=== PATIENT | male | born 1955 | race Caucasian/White ===

== ENCOUNTER 2016-07-13 16:29 | Inpatient (IN) | payer BC ==
--- NOTE | 2016-07-13 17:09 | EDM.PDOC ---
ED [facility] Behavioral Health - General Chief Complaint: Drug or Alcohol Abuse Stated Complaint: DETOX Time Seen by Provider: 07/13/16 16:48 Source of Information: Reports: Patient Exam Limitations: Reports: No limitations - History of Present Illness INITIAL COMMENTS - FREE TEXT/NARRATIVE: Patient is a 61-year-old male who presents to the ED complaining of alcoholism and is requesting detox. Patient states his last drink was approximately noon today. States he had a half pint of vodka prior to that. States he was recently evaluated at [facility] for inpatient treatment. Fidel Caceres LAC, evaluated him and states he requires inpatient detox prior to placement into treatment center. He has one prior treatment for alcoholism approximately 7 years ago. Patient was sober for 6 months until drinking alcohol again. Patient denies any hallucinations or seizures with detox. Patient drinks approximately 6-8 drinks of vodka, total 1 pint daily and also bear. He has been doing this for approximately 30+ years. Patient has been able to work up until recently. He was placed on administrative leave in hopes of obtaining therapy. As of today he lost his job. 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 Denies any recreational drug use or smoking. Past medical history: Alcoholism, hypertension, melanoma Medications: Prozac and questions if he is on lisinopril. Surgical history: Excision of melanoma to the chest. Primary care provider: Anayeli Padgett. - Related Data Allergies Allergy/AdvReac Type Severity Reaction Status Date / Time No Known Allergies Allergy Verified 12/20/13 13:52 Home Medications: Home Meds Multivitamin [Multivitamins] 1 each PO DAILY 12/20/13 [History] FLUoxetine [PROzac] 1 tab PO DAILY 07/13/16 [History] Past Medical History - Past Health History Medical/Surgical History: Denies Medical/Surgical History Musculoskeletal History: Reports: Fracture, Neck pain, chronic Other Musculoskeletal History: right arm Psychiatric History: Reports: Addiction Dermatologic History: Reports: Melanoma Social & Family History - Family History Family Medical History: Noncontributory - Tobacco Use Smoking Status *Q: Never Smoker Second Hand Smoke Exposure: No - Caffeine Use Caffeine Use: Reports: Coffee - Alcohol Use Days Per Week of Alcohol Use: 7 Number of Drinks Per Day: 6 Total Drinks Per Week: 42 - Recreational Drug Use Recreational Drug Use: Yes Recreational Drug Type: Reports: Marijuana/Hashish ED ROS GENERAL - Review of Systems Review Of Systems: See Below Constitutional: Reports: no symptoms Respiratory: Reports: No Symptoms Cardiovascular: Reports: No symptoms GI/Abdominal: Reports: No symptoms : Reports: no symptoms Musculoskeletal: Reports: no symptoms Neurological: Reports: No Symptoms Psychiatric: Reports: Cravings, Depression. Denies: Agitation, Anxiety, Confusion, Hallucinations, Homicidal ideation, Mood lability, Suicidal ideation ED EXAM, BEHAVIORAL HEALTH - Physical Exam Exam: See Below Exam Limited By: No limitations General Appearance: alert, WD/WN, no apparent distress Eye Exam: bilateral eye: PERRL (Horizontal nystagmus present. ) Ears: hearing grossly normal Nose: normal inspection Throat/Mouth: Normal voice, No airway compromise Neck: normal inspection, supple Respiratory/Chest: no respiratory distress, lungs clear, normal breath sounds, no accessory muscle use Cardiovascular: normal peripheral pulses, regular rate, rhythm, no murmur GI/Abdominal: normal bowel sounds, soft, non tender, no distention Neurological: alert, normal mood/affect, CN II-XII intact, normal cognition, normal gait, no motor/sensory deficits, oriented x 3 Psychiatric: alert, normal affect, normal cognition, normal mood, oriented Skin Exam: Warm, Dry, Intact, Normal color COURSE, BEHAVIORAL HEALTH COMP - Course Vital Signs: Last Vital Signs Temp 97.8 F 07/13/16 16:36 Pulse 86 07/13/16 16:36 Resp 16 07/13/16 16:36 BP 150/98 H 07/13/16 16:36 Pulse Ox 94 L 07/13/16 16:36 Orders, Labs, Meds: Active Orders 24 hr Category Date Time Status Peripheral IV Care [RC] . DIRECTED Care 07/13/16 17:09 Active MG [MAGNESIUM] [CHEM] Stat Lab 07/13/16 19:15 Ordered Sodium Chloride 0.9% [Saline Flush] Med 07/13/16 17:08 Active 10 ml FLUSH ASDIRECTED PRN Peripheral IV Insertion Adult [OM.PC] Stat Oth 07/13/16 17:08 Ordered Medication Orders Sodium Chloride (Saline Flush) 10 ml FLUSH ASDIRECTED PRN PRN Reason: Keep Vein Open Last Admin: 07/13/16 17:25 Dose: 10 ml Laboratory Tests 07/13/16 07/13/16 07/13/16 Range/Units 17:15 17:15 17:22 WBC 7.00 (4.23-9.07) K/mm3 RBC 5.14 (4.63-6.08) M/mm3 Hgb 15.9 (13.7-17.5) gm/L Hct 45.0 (40.1-51.0) % MCV 87.5 (79.0-92.2) fl MCH 30.9 (25.7-32.2) pg MCHC 35.3 (32.2-35.5) g/dl RDW Std Deviation 45.3 H (35.1-43.9) fL Plt Count 287 (163-337) K/mm3 MPV 9.0 L (9.4-12.3) fl Neut % (Auto) 65.0 (34.0-67.9) % Lymph % (Auto) 27.9 (21.8-53.1) % [place] % (Auto) 6.7 (5.3-12.2) % Eos % (Auto) 0.1 L (0.8-7.0) Baso % (Auto) 0.3 (0.1-1.2) % Neut # (Auto) 4.55 (1.78-5.38) K/mm3 Lymph # (Auto) 1.95 (1.32-3.57) K/mm3 [place] # (Auto) 0.47 (0.30-0.82) K/mm3 Eos # (Auto) 0.01 L (0.04-0.54) K/mm3 Baso # (Auto) 0.02 (0.01-0.08) K/mm3 PT (8.0-13.0) SECONDS INR Sodium (136-145) mEq/L Potassium (3.5-5.1) mEq/L Chloride (98-107) mEq/L Carbon Dioxide (21-32) mEq/L Anion Gap (5-15) BUN (7-18) mg/dL Creatinine (0.7-1.3) mg/dL Est Cr Clr Drug Dosing mL/min Estimated GFR (MDRD) (>60) mL/min BUN/Creatinine Ratio (14-18) Glucose (74-106) mg/dL Calcium (8.5-10.1) mg/dL Total Bilirubin (0.2-1.0) mg/dL AST (15-37) U/L ALT (16-63) U/L Alkaline Phosphatase (46-116) U/L Total Protein (6.4-8.2) g/dl Albumin (3.4-5.0) g/dl Globulin gm/dL Albumin/Globulin Ratio (1-2) TSH 3rd Generation (0.358-3.74) uIU/mL Urine Color Yellow (Yellow) Urine Appearance Clear (Clear) Urine pH 7.0 (5.0-8.0) Ur Specific [place] 1.015 (1.005-1.030) Urine Protein Negative (Negative) Urine Glucose (UA) Negative (Negative) Urine Ketones Negative (Negative) Urine Occult Blood Negative (Negative) Urine Nitrite Negative (Negative) Urine Bilirubin Negative (Negative) Urine Urobilinogen 0.2 (0.2-1.0) Ur Leukocyte Esterase Negative (Negative) Urine RBC Not seen (0-5) /hpf Urine WBC 0-5 (0-5) /hpf Ur Epithelial Cells 0-5 (0-5) /hpf Urine Bacteria Few (FEW) /hpf Urine Mucus Not seen (FEW) /hpf Urine Opiates Screen Negative (NEGATIVE) Ur Buprenorphine Scrn Negative (NEGATIVE) Ur Oxycodone Screen Negative (NEGATIVE) Urine Methadone Screen Negative (NEGATIVE) Ur Propoxyphene Screen Negative (NEGATIVE) Ur Barbiturates Screen Negative (NEGATIVE) Ur Tricyclics Screen Negative (NEGATIVE) Ur Phencyclidine Scrn Negative (NEGATIVE) Ur Amphetamine Screen Negative (NEGATIVE) U Methamphetamines Scrn Negative (NEGATIVE) U Benzodiazepines Scrn Negative (NEGATIVE) U Cocaine Metab Screen Negative (NEGATIVE) U Marijuana (THC) Screen Negative (NEGATIVE) Ethyl Alcohol (0.00) gm% 07/13/16 07/13/16 Range/Units 17:22 17:22 WBC (4.23-9.07) K/mm3 RBC (4.63-6.08) M/mm3 Hgb (13.7-17.5) gm/L Hct (40.1-51.0) % MCV (79.0-92.2) fl MCH (25.7-32.2) pg MCHC (32.2-35.5) g/dl RDW Std Deviation (35.1-43.9) fL Plt Count (163-337) K/mm3 MPV (9.4-12.3) fl Neut % (Auto) (34.0-67.9) % Lymph % (Auto) (21.8-53.1) % [place] % (Auto) (5.3-12.2) % Eos % (Auto) (0.8-7.0) Baso % (Auto) (0.1-1.2) % Neut # (Auto) (1.78-5.38) K/mm3 Lymph # (Auto) (1.32-3.57) K/mm3 [place] # (Auto) (0.30-0.82) K/mm3 Eos # (Auto) (0.04-0.54) K/mm3 Baso # (Auto) (0.01-0.08) K/mm3 PT 10.0 (8.0-13.0) SECONDS INR 0.92 Sodium 135 L (136-145) mEq/L Potassium 3.9 (3.5-5.1) mEq/L Chloride 98 (98-107) mEq/L Carbon Dioxide 23 (21-32) mEq/L Anion Gap 17.9 H (5-15) BUN 7 (7-18) mg/dL Creatinine 0.8 (0.7-1.3) mg/dL Est Cr Clr Drug Dosing 110.25 mL/min Estimated GFR (MDRD) > 60 (>60) mL/min BUN/Creatinine Ratio 8.8 L (14-18) Glucose 99 (74-106) mg/dL Calcium 9.3 (8.5-10.1) mg/dL Total Bilirubin 0.5 (0.2-1.0) mg/dL AST 41 H (15-37) U/L ALT 66 H (16-63) U/L Alkaline Phosphatase 69 (46-116) U/L Total Protein 7.4 (6.4-8.2) g/dl Albumin 3.9 (3.4-5.0) g/dl Globulin 3.5 gm/dL Albumin/Globulin Ratio 1.1 (1-2) TSH 3rd Generation 2.037 (0.358-3.74) uIU/mL Urine Color (Yellow) Urine Appearance (Clear) Urine pH (5.0-8.0) Ur Specific [place] (1.005-1.030) Urine Protein (Negative) Urine Glucose (UA) (Negative) Urine Ketones (Negative) Urine Occult Blood (Negative) Urine Nitrite (Negative) Urine Bilirubin (Negative) Urine Urobilinogen (0.2-1.0) Ur Leukocyte Esterase (Negative) Urine RBC (0-5) /hpf Urine WBC (0-5) /hpf Ur Epithelial Cells (0-5) /hpf Urine Bacteria (FEW) /hpf Urine Mucus (FEW) /hpf Urine Opiates Screen (NEGATIVE) Ur Buprenorphine Scrn (NEGATIVE) Ur Oxycodone Screen (NEGATIVE) Urine Methadone Screen (NEGATIVE) Ur Propoxyphene Screen (NEGATIVE) Ur Barbiturates Screen (NEGATIVE) Ur Tricyclics Screen (NEGATIVE) Ur Phencyclidine Scrn (NEGATIVE) Ur Amphetamine Screen (NEGATIVE) U Methamphetamines Scrn (NEGATIVE) U Benzodiazepines Scrn (NEGATIVE) U Cocaine Metab Screen (NEGATIVE) U Marijuana (THC) Screen (NEGATIVE) Ethyl Alcohol 0.26 (0.00) gm% Medications Generic Name Dose Route Start Last Admin Trade Name Freq PRN Reason Stop Dose Admin Sodium Chloride 10 ml 07/13/16 17:08 07/13/16 17:25 Saline Flush FLUSH 10 ml ASDIRECTED PRN Administration Keep Vein Open Discontinued Medications Generic Name Dose Route Start Last Admin Trade Name Freq PRN Reason Stop Dose Admin Chlordiazepoxide HCl 25 mg 07/13/16 18:59 07/13/16 19:09 Librium PO 07/13/16 19:00 25 mg ONETIME ONE Administration Lorazepam 1 mg 07/13/16 18:59 07/13/16 19:09 Ativan IVPUSH 07/13/16 19:00 1 mg ONETIME ONE Administration Re-Assessment/Re-Exam: Ordered a peripheral IV. Initial labs include CBC, chem 14, PT/INR, TSH, UA, urine drug tox, and serum EtOH. Labs reviewed: CBC essentially normal. Chem 14 with elevated anion gap of 17 and mildly elevated liver enzymes. TSH was within normal limits. UA was negative. Urine drug tox was negative. EtOH is 0.26. 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 Request contact a director of social media marketing. guest history clerk contacting on-call director of social media marketing. [phone] Patient is becoming agitated and anxious. Ordered Librium 25 mg by mouth and also Ativan 1 mg IVP. Nursing staff states Dr. Mares has accepted patient and requests admission as inpatient to ICU. Dr. Clark placed inpatient orders. Ordered serum mg. Departure - Departure Time of Disposition: 19:00 Disposition: Admitted As Inpatient 67 Condition: good Clinical Impression: Alcohol abuse Referrals: Kayley Padgett, SHELBIE [Primary Care Provider] - - My Orders Last 24 Hours: My Active Orders 07/13/16 17:08 Sodium Chloride 0.9% [Saline Flush] 10 ml FLUSH ASDIRECTED PRN Peripheral IV Insertion Adult [OM.PC] Stat 07/13/16 17:09 Peripheral IV Care [RC] . DIRECTED 07/13/16 19:15 MG [MAGNESIUM] [CHEM] Stat - Assessment/Plan Last 24 Hours: My Active Orders 07/13/16 17:08 Sodium Chloride 0.9% [Saline Flush] 10 ml FLUSH ASDIRECTED PRN Peripheral IV Insertion Adult [OM.PC] Stat 07/13/16 17:09 Peripheral IV Care [RC] . DIRECTED 07/13/16 19:15 MG [MAGNESIUM] [CHEM] Stat
[2016-07-13] MEDS: Sodium Chloride 0.9% 10 ML Syringe FLUSH PRN (17:25)
[2016-07-13] MEDS ORDERED: chlordiazePOXIDE 25 MG Cap PO ONE (18:59)
[2016-07-13] MEDS ORDERED: LORazepam 2 MG/ML MDV IVPUSH ONE (18:59)
[2016-07-13] MEDS ORDERED: HYDROmorphone 0.5 MG/0.5 ML Syringe IVPUSH PRN (19:53)
[2016-07-13] MEDS ORDERED: Ondansetron 4 MG/2 ML SDV IV PRN (19:53)
[2016-07-13] MEDS ORDERED: Acetaminophen 325 MG Tab PO PRN (19:53)
[2016-07-13] MEDS ORDERED: Acetaminophen/HYDROcodone 325-5 MG Tab PO PRN (19:53)
--- NOTE | 2016-07-13 19:53 | PCM.HP ---
H&P History of Present Illness - General Date of Service: 07/13/16 Admit Problem/Dx: Admission Diagnosis/Problem Admission Diagnosis/Problem Alcohol withdrawal syndrome Source of Information: Patient, Family, Old records, Provider, RN notes reviewed History Limitations: Reports: Intoxication - History of Present Illness Initial Comments - Free Text/Narative: This is a 61 yo white male with past medical hx/o Anxiety, Depression, HTN, Chronic Alcohol Dependence who presents to ED Intoxicated with DUNIA level of 0.26. He was recently evaluated at [facility] but needed to detox prior to inpatient treatment. Patient carries a long standing hx/o Chronic Alcoholism for over 40 years now. He attended chemical rehab once, about 7-8 years ago. However 6 months after his treatment, he went back to drinking and he continues to drink up to this date. Patient drinks about 1 pint of vodka a day. 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 Patient received initial treatment in ED before he was sent to the floor for further treatment. He is full code. - Related Data Allergies/Adverse Reactions: Allergies Allergy/AdvReac Type Severity Reaction Status Date / Time No Known Allergies Allergy Verified 12/20/13 13:52 Home Medications: Home Meds Multivitamin [Multivitamins] 1 each PO DAILY 12/20/13 [History] FLUoxetine [PROzac] 40 mg PO DAILY 07/13/16 [History] LORazepam 0.5 mg PO TID PRN 07/13/16 [History] Lisinopril 10 mg PO DAILY 07/13/16 [History] Past Medical History - Past Health History Medical/Surgical History: Denies Medical/Surgical History Musculoskeletal History: Reports: Fracture, Neck pain, chronic Other Musculoskeletal History: right arm Psychiatric History: Reports: Addiction Dermatologic History: Reports: Melanoma Social & Family History - Family History Family Medical History: Noncontributory - Tobacco Use Smoking Status *Q: Never Smoker Second Hand Smoke Exposure: No - Caffeine Use Caffeine Use: Reports: Coffee - Alcohol Use Days Per Week of Alcohol Use: 7 Number of Drinks Per Day: 6 Total Drinks Per Week: 42 - Recreational Drug Use Recreational Drug Use: Yes Recreational Drug Type: Reports: Marijuana/Hashish H&P Review of Systems - Review of Systems: Review Of Systems: See Below General: Denies: fever, chills, malaise, weakness, fatigue, decreased appetite HEENT: Denies: contact lenses Pulmonary: Denies: Shortness of Breath Cardiovascular: Denies: chest pain, palpitations, dyspnea on exertion Gastrointestinal: Denies: Abdominal pain, Nausea, Vomiting Genitourinary: Reports: no symptoms Musculoskeletal: Reports: no symptoms Skin: Reports: cyanosis, jaundice, rash, erythema Psychiatric: Reports: depression, cravings. Denies: anxiety, hallucinations, suicidal ideation, homicidal ideation Neurological: Reports: Tremors (mild), Gait Disturbance. Denies: Confusion, Dizziness, Difficulty Walking, Weakness Hematologic/Lymphatic: Reports: no symptoms Immunologic: Reports: no symptoms Exam - Exam Exam: See Below - Vital Signs Vital Signs: Last Vital Signs Temp 36.6 C 07/13/16 16:36 Pulse 88 07/13/16 17:38 Resp 18 07/13/16 17:38 BP 144/79 H 07/13/16 17:38 Pulse Ox 97 07/13/16 17:38 Weight: 79.379 kg - Exam General: alert, oriented, cooperative, mild distress, obtunded HEENT: Conjunctiva clear, EACs clear, Mucosa moist & pink, Nares patent, Normal nasal septum, Posterior pharynx clear, Other (Lateral Nystagmus), PERRLA. No: EOMI Neck: supple, trachea midline, 2+ carotid pulse wo bruit, full range of motion. No: JVD Lungs: Clear to auscultation, Normal respiratory effort Cardiovascular: regular rate, regular rhythm Abdomen: normal bowel sounds, soft. No: organomegaly (Male) Exam: Deferred Rectal (Males) Exam: Deferred Back Exam: normal inspection, full range of motion Extremities: normal inspection, normal pulses. No: clubbing, cyanosis, calf tenderness, edema Peripheral Pulses: 3+: posterior tibial (L), posterior tibial (R), dorsalis pedis (L), dorsalis pedis (R) Skin: warm, dry, intact Neuro Extensive - Mental Status: oriented x3, normal cognition, memory intact Neuro Extensive - Motor, Sensory, Reflexes: CN II-XII intact, abnormal gait Psychiatric: alert, normal affect, anxious, withdrawal symptoms. No: suicidal ideation, homicidal ideation, hallucinations - Patient Data Result Diagrams: 07/13/16 17:22 07/13/16 17:22 *Q Meaningful Use (ADM) - VTE *Q VTE Criteria *Q: - Stroke *Q Stroke Criteria *Q: - AMI *Q AMI Criteria *Q: Problem List Initiated/Reviewed/Updated: Yes Orders Last 24hrs: Active Orders 24 hr Category Date Time Status Admission Status [Patient Status] [ADT] Routine ADT 07/13/16 19:39 Active Medication Orders Sodium Chloride (Saline Flush) 10 ml FLUSH ASDIRECTED PRN PRN Reason: Keep Vein Open Last Admin: 07/13/16 17:25 Dose: 10 ml Assessment/Plan Comment:: Assessment/Plan: Acute: Acute ETOH Intoxication - DUNIA is 0.26 - Drinks half pint of vodka daily - [facility] protocol - Supportive care Chronic ETOH Abuse - Drinks for over 40 years now - He has been in chemical rehab once in the past, 7-8 years ago - He follows [facility] - He wants get in chemical rehab but he needs to detox prior to placement Substance Abuse - Admit ot using Marijuana - Most recent use 1 week ago - UDS negative for THC Anxiety/Depression - He has been on Prozac for so long but it dose not seems to work anymore - He is not being followed by Psych - Will consult Dr. Joe Plan: Admit to ICU [facility] protocol: Ativan/Librium MVI, Folic Acid and Thiamine Ativan IV for abortive seizures Restoril 30 mg po QHS and Benadryl 50 mg IVP PRN for Insomnia PRN Withdrawal Meds: Clonidine, BB, Hydralazine and Seroquel Routine AM labs DVT ppx: Lovenox SubQ GI ppx: PPI Fall/Seizure Precautions SW/CM for d/c planning SA/Psych consult Code status: 1
[2016-07-13] MEDS ORDERED: Albuterol/Ipratropium 3.0-0.5 MG/3 ML Neb Soln NEB PRN (19:58)
[2016-07-13] MEDS ORDERED: Bisacodyl 5 MG Tab PO PRN (19:58)
[2016-07-13] MEDS ORDERED: Docusate Sodium 100 MG Cap PO PRN (19:58)
[2016-07-13] MEDS ORDERED: Temazepam 30 MG Cap PO PRN (19:58)
[2016-07-13] MEDS ORDERED: chlordiazePOXIDE 25 MG Cap PO PRN (20:00)
[2016-07-13] MEDS ORDERED: Multivitamins,Therapeutic Tab PO ONE (20:00)
[2016-07-13] MEDS ORDERED: diphenhydrAMINE 50 MG/ML SDV IVPUSH PRN (20:33)
[2016-07-13] MEDS ORDERED: LORazepam 2 MG/ML MDV IVPUSH PRN (20:34)
[2016-07-13] MEDS: Sodium Chloride 0.9% 1,000 ML IV SCH (21:10)
[2016-07-13] MEDS: Pantoprazole 40 MG Vial IV SCH (21:11)
[2016-07-13] MEDS: QUEtiapine 25 MG Tab PO SCH (21:11)
[2016-07-13] MEDS: Metoprolol Tartrate 5 MG/5 ML SDV IVPUSH PRN (23:02)
[2016-07-14] MEDS: LORazepam 2 MG/ML MDV IVPUSH PRN ×4 (03:03→17:57)
[2016-07-14] MEDS: hydrALAZINE 20 MG/ML SDV IVPUSH PRN (04:46)
[2016-07-14] MEDS: Sodium Chloride 0.9% 1,000 ML IV SCH ×2 (04:46→20:11)
[2016-07-14] MEDS: Metoprolol Tartrate 5 MG/5 ML SDV IVPUSH PRN (06:18)
[2016-07-14] MEDS: chlordiazePOXIDE 25 MG Cap PO PRN ×2 (06:18→14:13)
[2016-07-14] MEDS ORDERED: Magnesium Sulfate/Water 2 GM in Premix Bag 1 BAG IV ONE (07:30)
[2016-07-14] MEDS: Thiamine 100 MG Tab PO SCH (08:04)
[2016-07-14] MEDS: QUEtiapine 25 MG Tab PO SCH ×2 (08:04→20:07)
[2016-07-14] MEDS: Lisinopril 10 MG Tab PO SCH (08:04)
[2016-07-14] MEDS: Enoxaparin 40 MG/0.4 ML Syringe SUBCUT SCH (08:05)
[2016-07-14] MEDS: Folic Acid 1 MG Tab PO SCH (08:05)
[2016-07-14] MEDS: Pantoprazole 40 MG Vial IV SCH (08:05)
--- NOTE | 2016-07-14 08:55 | PCM.PN ---
- General Info Date of Service: 07/14/16 Admission Dx/Problem (Free Text): Admission Diagnosis/Problem Admission Diagnosis/Problem Alcohol withdrawal syndrome Subjective Update: Follow up Functional Status: Reports: pain controlled, tolerating diet, ambulating, urinating. Denies: new symptoms - Review of Systems General: Denies: Fever, Weakness, Fatigue, Malaise, Chills HEENT: Reports: no symptoms Pulmonary: Denies: shortness of breath Cardiovascular: Denies: Chest Pain, Palpitations, Dyspnea on Exertion Gastrointestinal: Denies: Abdominal pain, Constipation, Diarrhea, Difficulty swallowing, Nausea, Vomiting Genitourinary: Reports: no symptoms Musculoskeletal: Reports: no symptoms Skin: Denies: cyanosis, rash Neurological: Denies: Confusion, Dizziness, Seizure, Syncope, Difficulty Walking , Weakness Psychiatric: Denies: confusion, depression, anxiety, agitation, cravings, hallucinations, homicidal ideation Systems Review Comment:: No overnight or acute issues. He slept really well last night. He still somewhat groggy but able to hold a conversation. - Patient Data Vitals - most recent: Last Vital Signs Temp 36.6 C 07/14/16 07:44 Pulse 96 07/14/16 08:00 Resp 18 07/14/16 07:44 BP 139/83 07/14/16 08:04 Pulse Ox 96 07/14/16 08:00 Weight - most recent: 79.379 kg I&O - last 24 hours: Intake & Output 07/13/16 07/14/16 07/14/16 22:59 06:59 14:59 Intake Total 1442 Output Total 1000 400 Balance 442 -400 Lab Results last 24 hrs: Laboratory Results - last 24 hr 07/14/16 07/14/16 Range/Units 06:34 06:34 WBC 6.00 (4.23-9.07) K/mm3 RBC 4.75 (4.63-6.08) M/mm3 Hgb 14.6 (13.7-17.5) gm/L Hct 42.2 (40.1-51.0) % MCV 88.8 (79.0-92.2) fl MCH 30.7 (25.7-32.2) pg MCHC 34.6 (32.2-35.5) g/dl RDW Std Deviation 45.7 H (35.1-43.9) fL Plt Count 268 (163-337) K/mm3 MPV 9.0 L (9.4-12.3) fl Neut % (Auto) 51.3 (34.0-67.9) % Lymph % (Auto) 36.0 (21.8-53.1) % [place] % (Auto) 11.7 (5.3-12.2) % Eos % (Auto) 0.5 L (0.8-7.0) Baso % (Auto) 0.3 (0.1-1.2) % Neut # (Auto) 3.08 (1.78-5.38) K/mm3 Lymph # (Auto) 2.16 (1.32-3.57) K/mm3 [place] # (Auto) 0.70 (0.30-0.82) K/mm3 Eos # (Auto) 0.03 L (0.04-0.54) K/mm3 Baso # (Auto) 0.02 (0.01-0.08) K/mm3 Sodium 136 (136-145) mEq/L Potassium 4.2 (3.5-5.1) mEq/L Chloride 103 (98-107) mEq/L Carbon Dioxide 24 (21-32) mEq/L Anion Gap 13.2 (5-15) BUN 10 (7-18) mg/dL Creatinine 0.9 (0.7-1.3) mg/dL Est Cr Clr Drug Dosing 98.00 mL/min Estimated GFR (MDRD) > 60 (>60) mL/min BUN/Creatinine Ratio 11.1 L (14-18) Glucose 94 (74-106) mg/dL Calcium 8.3 L (8.5-10.1) mg/dL Magnesium 1.6 L (1.8-2.4) mg/dl Total Bilirubin 1.1 H (0.2-1.0) mg/dL AST 35 (15-37) U/L ALT 55 (16-63) U/L Alkaline Phosphatase 55 (46-116) U/L Total Protein 6.1 L (6.4-8.2) g/dl Albumin 3.2 L (3.4-5.0) g/dl Globulin 2.9 gm/dL Albumin/Globulin Ratio 1.1 (1-2) Med Orders - Current: Current Medications Acetaminophen (Tylenol) 650 mg PO Q4H PRN PRN Reason: Pain (Mild 1-3)/fever Hydrocodone Bitart/Acetaminophen ([place] 325-5 Mg) 1 tab PO Q4H PRN PRN Reason: Pain (moderate 4-6) Albuterol/Ipratropium (Duoneb 3.0-0.5 Mg/3 Ml) 3 ml NEB Q4H PRN PRN Reason: Shortness Of Breath/wheezing Bisacodyl (Dulcolax) 5 mg PO DAILY PRN PRN Reason: Constipation Chlordiazepoxide HCl (Librium) 25 mg PO Q8H PRN PRN Reason: Withdrawal Symptoms Last Admin: 07/14/16 06:18 Dose: 25 mg Diphenhydramine HCl (Benadryl) 50 mg IVPUSH BEDTIME PRN PRN Reason: Insomnia Docusate Sodium (Colace) 100 mg PO BID PRN PRN Reason: Constipation Enoxaparin Sodium (Lovenox) 40 mg SUBCUT DAILY [facility] Last Admin: 07/14/16 08:05 Dose: 40 mg Famotidine (Pepcid) 20 mg PO Q12H [facility] Folic Acid (Folic Acid) 1 mg PO DAILY [facility] Stop: 07/16/16 09:01 Last Admin: 07/14/16 08:05 Dose: 1 mg Hydralazine HCl (Apresoline) 20 mg IVPUSH Q4H PRN PRN Reason: Hypertension Last Admin: 07/14/16 04:46 Dose: 20 mg Hydromorphone HCl (Dilaudid) 0.25 mg IVPUSH Q2H PRN PRN Reason: Pain (severe 7-10) Sodium Chloride (Normal Saline) 1,000 mls @ 125 mls/hr IV ASDIRECTED [facility] Last Admin: 07/14/16 04:46 Dose: 125 mls/hr Magnesium Sulfate 2 gm/ Premix 50 mls @ 25 mls/hr IV ONETIME ONE Stop: 07/14/16 09:29 Last Admin: 07/14/16 07:41 Dose: 25 mls/hr Lisinopril (Prinivil) 10 mg PO DAILY [facility] Last Admin: 07/14/16 08:04 Dose: 10 mg Lorazepam (Ativan) 2 mg IVPUSH Q4H PRN PRN Reason: Seizures Lorazepam (Ativan) 1 mg IVPUSH Q4H PRN; Protocol PRN Reason: Withdrawal Symptoms Last Admin: 07/14/16 06:29 Dose: 1 mg Lorazepam (Ativan) 0.5 mg PO TID PRN PRN Reason: Anxiety Magnesium Sulfate (Pharmacy To Dose - Magnesium Replacement) 1 dose .XX ASDIRECTED [facility] Metoprolol Tartrate (Lopressor) 5 mg IVPUSH Q4H PRN PRN Reason: Tachycardia Last Admin: 07/14/16 06:18 Dose: 5 mg Ondansetron HCl (Zofran) 4 mg IV Q6H PRN PRN Reason: Nausea/Vomiting Pantoprazole Sodium (Protonix Iv) 40 mg IV Q12H [facility] Last Admin: 07/14/16 08:05 Dose: 40 mg Potassium Chloride (Pharmacy To Dose - Potassium Replacement) 1 dose .XX ASDIRECTED [facility] Quetiapine Fumarate (Seroquel) 25 mg PO BID [facility] Last Admin: 07/14/16 08:04 Dose: 25 mg Senna/Docusate Sodium (Senna Plus) 1 tab PO BID PRN PRN Reason: Constipation Sodium Chloride (Saline Flush) 10 ml FLUSH ASDIRECTED PRN PRN Reason: Keep Vein Open Last Admin: 07/13/16 17:25 Dose: 10 ml Temazepam (Restoril) 30 mg PO BEDTIME PRN PRN Reason: Sleep Last Admin: 07/13/16 21:11 Dose: 30 mg Thiamine HCl (Vitamin B-1) 100 mg PO DAILY [facility] Last Admin: 07/14/16 08:04 Dose: 100 mg Discontinued Medications Chlordiazepoxide HCl (Librium) 25 mg PO ONETIME ONE Stop: 07/13/16 19:00 Last Admin: 07/13/16 19:09 Dose: 25 mg Chlordiazepoxide HCl (Librium) 25 mg PO Q8H PRN PRN Reason: Withdrawal Symptoms Fluoxetine HCl (Prozac) 10 mg PO DAILY [facility] Thiamine HCl 200 mg/ Sodium (Chloride) 52 mls @ 100 mls/hr IV ONETIME ONE Stop: 07/13/16 20:30 Last Admin: 07/13/16 21:11 Dose: 100 mls/hr Lorazepam (Ativan) 1 mg IVPUSH ONETIME ONE Stop: 07/13/16 19:00 Last Admin: 07/13/16 19:09 Dose: 1 mg Multivitamins (Thera) 1 each PO ONETIME ONE Stop: 07/13/16 20:01 Last Admin: 07/13/16 21:12 Dose: 1 each - Exam General: oriented, cooperative, no acute distress HEENT: Pupils equal, Pupils reactive, EOMI, Mucous membr. moist/pink Neck: supple, trachea midline, no JVD, no thyromegaly Lungs: Clear to auscultation, Normal respiratory effort Cardiovascular: Regular Rate, Regular Rhythm Abdomen: bowel sounds present, soft, no tenderness, no distension (Male) Exam: Deferred Back Exam: normal inspection, decreased range of motion Extremities: no edema, normal pulses, no tenderness/swelling, no clubbing, no cyanosis, no calf tenderness Skin: warm, dry, intact Neurological: no new focal deficit Psy/Mental Status: normal affect, normal mood, withdrawal symptoms, other ( somewhat lethargic). No: anxious, agitated, suicidal ideation, homicidal ideation, hallucinations - Problem List Review Problem List Initiated/Reviewed/Updated: Yes - My Orders Last 24 Hours: My Active Orders 07/13/16 19:39 Admission Status [Patient Status] [ADT] Routine 07/13/16 19:53 CIWAA Assessment [RC] Q1HR Height and Weight [RC] DAILY Notify Provider [RC] PRN Oxygen Therapy [RC] PRN Up ad Verónica [RC] ASDIRECTED VTE/DVT Education [RC] PER UNIT ROUTINE Vital Signs [RC] Q4HR Acetaminophen [Tylenol] 650 mg PO Q4H PRN Acetaminophen/HYDROcodone [[place] 325-5 MG] 1 tab PO Q4H PRN HYDROmorphone [Dilaudid] 0.25 mg IVPUSH Q2H PRN Ondansetron [Zofran] 4 mg IV Q6H PRN Resuscitation Status Routine 07/13/16 19:54 Cardiac Monitoring [RC] CONTINUOUS Intake and Output [RC] 07/13/16 19:58 Albuterol/Ipratropium [DuoNeb 3.0-0.5 MG/3 ML] 3 ml NEB Q4H PRN Bisacodyl [Dulcolax] 5 mg PO DAILY PRN Docusate Sodium [Colace] 100 mg PO BID PRN Docusate Sodium/Sennosides [Senna Plus] 1 tab PO BID PRN Temazepam [Restoril] 30 mg PO BEDTIME PRN 07/13/16 19:59 RT Aerosol Therapy [RC] ASDIRECTED 07/13/16 20:00 Consult to Case Management [CONS] Routine Consult to [facility] [CONS] Routine OT Evaluation and Treatment [CONS] Routine PT Evaluation and Treatment [CONS] Routine Sodium Chloride 0.9% [Normal Saline] 1,000 ml IV ASDIRECTED Seizure Precautions [OM.PC] Routine 07/13/16 20:05 Metoprolol Tartrate [Lopressor] 5 mg IVPUSH Q4H PRN hydrALAZINE [Apresoline] 20 mg IVPUSH Q4H PRN 07/13/16 20:15 Magnesium Rep Pharmacy to Dose [Pharmacy to Dose - Magnesium Replacement] 1 dose .XX ASDIRECTED Potassium Rep Pharmacy to Dose [Pharmacy to Dose - Potassium Replacement] 1 dose .XX ASDIRECTED 07/13/16 20:33 diphenhydrAMINE [Benadryl] 50 mg IVPUSH BEDTIME PRN 07/13/16 20:34 LORazepam [Ativan] 2 mg IVPUSH Q4H PRN 07/13/16 20:35 LORazepam [Ativan] 1 mg IVPUSH Q4H PRN chlordiazePOXIDE [Librium] 25 mg PO Q8H PRN 07/13/16 20:39 Notify Provider Consults [RC] ASDIRECTED Consult to Physician [CONS] Routine 07/13/16 21:00 Pantoprazole [ProTONIX IV] 40 mg IV Q12H QUEtiapine [SEROquel] 25 mg PO BID 07/13/16 23:27 LORazepam [Ativan] 0.5 mg PO TID PRN 07/13/16 Dinner Regular Diet [DIET] 07/14/16 07:30 Magnesium Sulfate/Water [Magnesium Sulfate 2 GM in Water 50 ML] 2 gm Premix Bag 1 bag IV ONETIME 07/14/16 09:00 Enoxaparin [Lovenox] 40 mg SUBCUT DAILY Folic Acid 1 mg PO DAILY Lisinopril [Prinivil] 10 mg PO DAILY Thiamine [Vitamin B-1] 100 mg PO DAILY 07/15/16 05:11 CBC WITH AUTO DIFF [HEME] AM COMPREHENSIVE METABOLIC PN,CMP [CHEM] AM MAGNESIUM [CHEM] AM 04/28/17 21:00 Famotidine [Pepcid] 20 mg PO Q12H 07/16/16 05:11 CBC WITH AUTO DIFF [HEME] AM COMPREHENSIVE METABOLIC PN,CMP [CHEM] AM MAGNESIUM [CHEM] AM 07/17/16 05:11 CBC WITH AUTO DIFF [HEME] AM COMPREHENSIVE METABOLIC PN,CMP [CHEM] AM MAGNESIUM [CHEM] AM - Plan Plan:: Assessment/Plan: Acute: Acute ETOH Intoxication With Mild- Mod Withdrawal Syndrome - DUNIA is 0.26 - Drinks half pint of vodka daily - [facility] protocol - Supportive care Chronic ETOH Abuse - Drinks for over 40 years now - He has been in chemical rehab once in the past, 7-8 years ago - He follows [facility] - He wants get in chemical rehab but he needs to detox prior to placement Substance Abuse - Admit ot using Marijuana - Most recent use 1 week ago - UDS negative for THC Anxiety/Depression - He has been on Prozac for so long but it dose not seems to work anymore - He is not being followed by Psych - Awaiting consultation from Dr. Joe Plan: He is fairly stable Continue current treatment [facility] protocol: Ativan/Librium MVI, Folic Acid and Thiamine Ativan IV for abortive seizures Restoril 30 mg po QHS and Benadryl 50 mg IVP PRN for Insomnia PRN Withdrawal Meds: Clonidine, BB, Hydralazine and Seroquel Routine AM labs DVT ppx: Lovenox SubQ GI ppx: PPI Fall/Seizure Precautions SW/CM for d/c planning SA/Psych consult Code status: 1
[2016-07-14] MEDS ORDERED: FLUoxetine 10 MG Cap PO SCH (09:00)
[2016-07-14] MEDS: Venlafaxine 37.5 MG Cap.ER PO SCH (11:59)
--- NOTE | 2016-07-14 16:37 | CONS ---
CONSULTING PHYSICIAN: Sincere Joe MD DATE OF CONSULTATION: 07/14/2016 This is a 60 minute inpatient consult. IDENTIFICATION: The patient is a 61-year-old male, who was admitted to the MICU at [facility] in [place], [place] on July 15 for symptoms of alcohol withdrawal. He is seen for psychiatric consultation to assess for depression. CHIEF COMPLAINT: "I was just drinking every day and needed help." HISTORY OF PRESENT ILLNESS: The patient is a 61-year-old male who reports that he has been drinking "about a pint of vodka a day" for some time now. He states that he has been struggling with depression and anxiety and notes "I kind of drink to help with depression. To self medicate." Evidently, according to staff, the patient lost his job yesterday. 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 He notes that in addition to his heavy drinking and his anxiety and depression; he has been struggling with decreased appetite and racing thoughts and ruminations to the point of distraction and it is causing poor sleep quality. He denies any mood swings. He denies any type of compulsive behaviors aside from his drinking and he states that he is generally maintaining good interest and good energy denying any isolative behavior. He denies any suicidal or homicidal ideations or any psychotic, delusional, or paranoid symptoms. He states that he is depressed and anxious and this anxiety and depression has been pretty badly, but he feels that if he can get the drinking under control "that will help quite a bit," in terms of improving his mood. He is currently taking Prozac prior to admission. He states he has been on this medication "for about 8 years" now, he felt that the medication helped at the beginning but not so much now. He states "it was recently bumped up but it did not do much" in terms of helping improve his mood. He also states he was on Effexor XR in the past and this medication helped him quite a bit, but he had to go off it back in the day because "it was too expensive when I was getting it back then." MEDICATIONS: At the time of presentation prior to admission: 1. Prozac since admission. 2. Ativan p.r.n. 3. Librium. 4. Seroquel 25 b.i.d. 5. Lisinopril. ALLERGIES: No known drug allergies. PAST MEDICAL HISTORY: Hypertension. REVIEW OF SYSTEMS: Aside from cardiovascular, all other major organ systems are negative at this point in time for acute difficulties or complications. FAMILY/PSYCHIATRIC/AND CD HISTORY: The patient denies past psychiatric and CD history. The patient denies any previous psychiatric hospitalizations. He reports one chemical dependency treatment in 2006 for alcohol use. He is a nontobacco user. Denies any DWIs, has gone to AA in the past. Not so sure, it has helped him though in his opinion. His longest sobriety was after he went through the treatment. He had 6 months of sobriety. Denies any previous suicide attempts, self-injurious behaviors or eating disorder history. Past psychiatric medication history includes Effexor XR which help. Past psychiatric diagnosis is anxiety and depression. He sees a counselor out of [facility] and his primary care provider Kayley Padgett NP. SOCIAL HISTORY: The patient was born and raised in [place], [place] area [place] the [facility]. He is the second of 2 siblings and has one older sister. The patient's parents were throughout his childhood and adolescence. 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 The patient's highest level of education is [employer]. The patient is currently a local brand mgr. He has been twice. First marriage was for 24 years. He was for 6 years. His 2nd marriage now for the past 4 years. His 2nd consulted and he has 2 children from the first marriage. He lives with his in [place], [place]. Denies any prior service or any current legal difficulties. He was raised [facility]; enjoys biking, golfing, and fishing, and hunting. MENTAL STATUS EXAM: The patient is a 61-year-old white male, in no apparent distress. Speech is regular rate and rhythm. The patient is cognitively oriented x3. Psychomotor activity is within normal limits. There is no abnormal motor movements or tics observed. Gait and station are not observed. This patient is lying in bed, during the inpatient psychiatric consult. Mood is depressed and anxious. Affect is cooperative overall for the purposes of the inpatient psychiatric consult, perhaps somewhat restricted and consistent with stated mood. There is no behavioral or stated evidence of acute suicidal or homicidal ideation or acute psychotic, delusional, or paranoid symptoms. Thought processes appear organized. The patient is reporting racing thoughts and ruminations. There is no acute manic symptoms or loose associations evident. Judgment and insight appear unimpaired at this point in time. Motivation is good. VITALS: 139/83, 96, 18, and 98.6 degrees. IMPRESSION: [place] I: 1. Alcohol dependence, F10.20. 2. Major depressive disorder, recurrent F33.2. 3. Anxiety disorder, not otherwise specified; F41.9. [place] II: None. [place] III: History of hypertension. [place] IV: Severe. [place] V: 55 to 60. PLAN: 1. Discontinue Prozac. 2. Begin trial of Effexor XR, 35 mg q.a.m. to help with mood. 3. Continue Seroquel, but change dosing regimen from 25 mg b.i.d. to 50 mg at bedtime to help with sleep initiation and maintenance and also to reduce racing thoughts and ruminations, particularly in the evening to help with anxiety reduction. 4. I will continue Ativan per [facility] protocol. 5. Folic acid 1 mg daily, if not already prescribed. 6. Thiamine 100 mg daily, if not already prescribed. 7. AA rep. 8. Pastoral guidance. 9. CD consult if not already done. 10.We will continue follow up with the patient on an as needed basis while he is on the inpatient MICU medical unit. 11.We will follow up with the patient sooner, if there are any complications in the interim. 12.Crisis plan is in place. [facility] /[id number]
[2016-07-14] MEDS: LORazepam 0.5 MG Tab PO PRN (20:06)
[2016-07-14] MEDS: Famotidine 20 MG Tab PO SCH (20:08)
[2016-07-15] MEDS: Sodium Chloride 0.9% 1,000 ML IV SCH (04:15)
[2016-07-15] MEDS: chlordiazePOXIDE 25 MG Cap PO PRN (06:44)
[2016-07-15] MEDS: LORazepam 0.5 MG Tab PO PRN (06:44)
--- NOTE | 2016-07-15 07:14 | PCM.PN ---
- General Info Date of Service: 07/15/16 Admission Dx/Problem (Free Text): Admission Diagnosis/Problem Admission Diagnosis/Problem Alcohol withdrawal syndrome Subjective Update: Follow up Functional Status: Reports: pain controlled, tolerating diet, ambulating, urinating. Denies: new symptoms - Review of Systems General: Denies: Fever, Weakness, Fatigue, Malaise HEENT: Reports: no symptoms Pulmonary: Denies: shortness of breath Cardiovascular: Denies: Chest Pain Gastrointestinal: Denies: Abdominal pain, Nausea, Vomiting Genitourinary: Reports: no symptoms Musculoskeletal: Reports: no symptoms Skin: Denies: cyanosis Neurological: Denies: Confusion, Dizziness, Syncope, Tremors, Gait Disturbance Psychiatric: Denies: confusion, depression, anxiety, agitation, hallucinations, suicidal ideation Systems Review Comment:: No overnight issues. CIWA Score is 10-11 w/o medications. He has no new complaints. - Patient Data Vitals - most recent: Last Vital Signs Temp 36.8 C 07/15/16 04:00 Pulse 88 07/14/16 19:49 Resp 16 07/15/16 04:00 BP 139/89 07/15/16 04:00 Pulse Ox 98 07/15/16 04:00 Weight - most recent: 79.107 kg I&O - last 24 hours: Intake & Output 07/14/16 07/15/16 07/15/16 22:59 06:59 14:59 Intake Total 3440 1600 Output Total 300 850 Balance 3140 750 Lab Results last 24 hrs: Laboratory Results - last 24 hr 07/14/16 07/15/16 Range/Units 06:34 06:25 WBC 7.42 (4.23-9.07) K/mm3 RBC 4.44 L (4.63-6.08) M/mm3 Hgb 13.7 (13.7-17.5) gm/L Hct 40.2 (40.1-51.0) % MCV 90.5 (79.0-92.2) fl MCH 30.9 (25.7-32.2) pg MCHC 34.1 (32.2-35.5) g/dl RDW Std Deviation 46.6 H (35.1-43.9) fL Plt Count 227 (163-337) K/mm3 MPV 9.2 L (9.4-12.3) fl Neut % (Auto) 74.2 H (34.0-67.9) % Lymph % (Auto) 15.8 L (21.8-53.1) % [place] % (Auto) 8.9 (5.3-12.2) % Eos % (Auto) 0.9 (0.8-7.0) Baso % (Auto) 0.1 (0.1-1.2) % Neut # (Auto) 5.50 H (1.78-5.38) K/mm3 Lymph # (Auto) 1.17 L (1.32-3.57) K/mm3 [place] # (Auto) 0.66 (0.30-0.82) K/mm3 Eos # (Auto) 0.07 (0.04-0.54) K/mm3 Baso # (Auto) 0.01 (0.01-0.08) K/mm3 Sodium 136 (136-145) mEq/L Potassium 4.2 (3.5-5.1) mEq/L Chloride 103 (98-107) mEq/L Carbon Dioxide 24 (21-32) mEq/L Anion Gap 13.2 (5-15) BUN 10 (7-18) mg/dL Creatinine 0.9 (0.7-1.3) mg/dL Est Cr Clr Drug Dosing 98.00 mL/min Estimated GFR (MDRD) > 60 (>60) mL/min BUN/Creatinine Ratio 11.1 L (14-18) Glucose 94 (74-106) mg/dL Calcium 8.3 L (8.5-10.1) mg/dL Magnesium 1.6 L (1.8-2.4) mg/dl Total Bilirubin 1.1 H (0.2-1.0) mg/dL AST 35 (15-37) U/L ALT 55 (16-63) U/L Alkaline Phosphatase 55 (46-116) U/L Total Protein 6.1 L (6.4-8.2) g/dl Albumin 3.2 L (3.4-5.0) g/dl Globulin 2.9 gm/dL Albumin/Globulin Ratio 1.1 (1-2) Med Orders - Current: Current Medications Acetaminophen (Tylenol) 650 mg PO Q4H PRN PRN Reason: Pain (Mild 1-3)/fever Hydrocodone Bitart/Acetaminophen ([place] 325-5 Mg) 1 tab PO Q4H PRN PRN Reason: Pain (moderate 4-6) Albuterol/Ipratropium (Duoneb 3.0-0.5 Mg/3 Ml) 3 ml NEB Q4H PRN PRN Reason: Shortness Of Breath/wheezing Bisacodyl (Dulcolax) 5 mg PO DAILY PRN PRN Reason: Constipation Chlordiazepoxide HCl (Librium) 25 mg PO Q8H PRN PRN Reason: Withdrawal Symptoms Last Admin: 07/15/16 06:44 Dose: 25 mg Diphenhydramine HCl (Benadryl) 50 mg IVPUSH BEDTIME PRN PRN Reason: Insomnia Docusate Sodium (Colace) 100 mg PO BID PRN PRN Reason: Constipation Enoxaparin Sodium (Lovenox) 40 mg SUBCUT DAILY [facility] Last Admin: 07/14/16 08:05 Dose: 40 mg Famotidine (Pepcid) 20 mg PO Q12H [facility] Famotidine (Pepcid) 20 mg PO BID [facility] Last Admin: 07/14/16 20:08 Dose: 20 mg Folic Acid (Folic Acid) 1 mg PO DAILY [facility] Stop: 07/16/16 09:01 Last Admin: 07/14/16 08:05 Dose: 1 mg Hydralazine HCl (Apresoline) 20 mg IVPUSH Q4H PRN PRN Reason: Hypertension Last Admin: 07/14/16 04:46 Dose: 20 mg Hydromorphone HCl (Dilaudid) 0.25 mg IVPUSH Q2H PRN PRN Reason: Pain (severe 7-10) Sodium Chloride (Normal Saline) 1,000 mls @ 125 mls/hr IV ASDIRECTED [facility] Last Admin: 07/15/16 04:15 Dose: 125 mls/hr Lisinopril (Prinivil) 10 mg PO DAILY [facility] Last Admin: 07/14/16 08:04 Dose: 10 mg Lorazepam (Ativan) 2 mg IVPUSH Q4H PRN PRN Reason: Seizures Lorazepam (Ativan) 1 mg IVPUSH Q4H PRN; Protocol PRN Reason: Withdrawal Symptoms Last Admin: 07/14/16 17:57 Dose: 1 mg Lorazepam (Ativan) 0.5 mg PO TID PRN PRN Reason: Anxiety Last Admin: 07/15/16 06:44 Dose: 0.5 mg Magnesium Sulfate (Pharmacy To Dose - Magnesium Replacement) 1 dose .XX ASDIRECTED [facility] Metoprolol Tartrate (Lopressor) 5 mg IVPUSH Q4H PRN PRN Reason: Tachycardia Last Admin: 07/14/16 06:18 Dose: 5 mg Ondansetron HCl (Zofran) 4 mg IV Q6H PRN PRN Reason: Nausea/Vomiting Potassium Chloride (Pharmacy To Dose - Potassium Replacement) 1 dose .XX ASDIRECTED [facility] Quetiapine Fumarate (Seroquel) 50 mg PO BEDTIME [facility] Last Admin: 07/14/16 20:07 Dose: 50 mg Senna/Docusate Sodium (Senna Plus) 1 tab PO BID PRN PRN Reason: Constipation Sodium Chloride (Saline Flush) 10 ml FLUSH ASDIRECTED PRN PRN Reason: Keep Vein Open Last Admin: 07/13/16 17:25 Dose: 10 ml Temazepam (Restoril) 30 mg PO BEDTIME PRN PRN Reason: Sleep Last Admin: 07/13/16 21:11 Dose: 30 mg Thiamine HCl (Vitamin B-1) 100 mg PO DAILY [facility] Last Admin: 07/14/16 08:04 Dose: 100 mg Venlafaxine HCl (Effexor Xr) 37.5 mg PO DAILY [facility] Last Admin: 07/14/16 11:59 Dose: 37.5 mg Venlafaxine HCl (Effexor Xr) 75 mg PO DAILY [facility] Discontinued Medications Chlordiazepoxide HCl (Librium) 25 mg PO ONETIME ONE Stop: 07/13/16 19:00 Last Admin: 07/13/16 19:09 Dose: 25 mg Chlordiazepoxide HCl (Librium) 25 mg PO Q8H PRN PRN Reason: Withdrawal Symptoms Fluoxetine HCl (Prozac) 10 mg PO DAILY [facility] Thiamine HCl 200 mg/ Sodium (Chloride) 52 mls @ 100 mls/hr IV ONETIME ONE Stop: 07/13/16 20:30 Last Admin: 07/13/16 21:11 Dose: 100 mls/hr Magnesium Sulfate 2 gm/ Premix 50 mls @ 25 mls/hr IV ONETIME ONE Stop: 07/14/16 09:29 Last Admin: 07/14/16 07:41 Dose: 25 mls/hr Lorazepam (Ativan) 1 mg IVPUSH ONETIME ONE Stop: 07/13/16 19:00 Last Admin: 07/13/16 19:09 Dose: 1 mg Multivitamins (Thera) 1 each PO ONETIME ONE Stop: 07/13/16 20:01 Last Admin: 07/13/16 21:12 Dose: 1 each Pantoprazole Sodium (Protonix Iv) 40 mg IV Q12H [facility] Last Admin: 07/14/16 08:05 Dose: 40 mg Quetiapine Fumarate (Seroquel) 25 mg PO BID [facility] Last Admin: 07/14/16 08:04 Dose: 25 mg - Exam General: alert, oriented, cooperative, no acute distress HEENT: Pupils equal, Pupils reactive, EOMI, Mucous membr. moist/pink Neck: supple, trachea midline, no JVD, no thyromegaly, +2 carotid pulse wo bruit Lungs: Clear to auscultation, Normal respiratory effort Cardiovascular: No Murmurs, Tachycardia Abdomen: bowel sounds present, soft, no tenderness, no distension (Male) Exam: Deferred Back Exam: normal inspection, full range of motion Extremities: no edema, normal pulses, no tenderness/swelling, no clubbing, no cyanosis, no calf tenderness Peripheral Pulses: 3+: posterior tibial (L), posterior tibial (R), dorsalis pedis (L), dorsalis pedis (R) Skin: warm, dry, intact Neurological: no new focal deficit Psy/Mental Status: alert, normal affect, normal mood. No: homicidal ideation, hallucinations - Problem List Review Problem List Initiated/Reviewed/Updated: Yes - My Orders Last 24 Hours: My Active Orders 07/14/16 09:00 Enoxaparin [Lovenox] 40 mg SUBCUT DAILY Folic Acid 1 mg PO DAILY Lisinopril [Prinivil] 10 mg PO DAILY Thiamine [Vitamin B-1] 100 mg PO DAILY 07/14/16 21:00 Famotidine [Pepcid] 20 mg PO BID 07/15/16 06:25 COMPREHENSIVE METABOLIC PN,CMP [CHEM] AM MAGNESIUM [CHEM] AM 07/15/16 21:00 Famotidine [Pepcid] 20 mg PO Q12H 07/16/16 05:11 CBC WITH AUTO DIFF [HEME] AM COMPREHENSIVE METABOLIC PN,CMP [CHEM] AM MAGNESIUM [CHEM] AM 07/17/16 05:11 CBC WITH AUTO DIFF [HEME] AM COMPREHENSIVE METABOLIC PN,CMP [CHEM] AM MAGNESIUM [CHEM] AM - Plan Plan:: Assessment/Plan: Acute: ETOH Withdrawal Syndrome - CIWA score 10-11 prior to medications - DUNIA is 0.26 on admission - Drinks half pint of vodka daily - CIWA protocol - Supportive care Chronic ETOH Abuse - Drinks for over 40 years now - He has been in chemical rehab once in the past, 7-8 years ago - He follows [facility] - He wants get in chemical rehab but he needs to detox prior to placement Substance Abuse - Admit ot using Marijuana - Most recent use 1 week ago - UDS negative for THC Anxiety/Depression - He has been on Prozac for so long but it dose not seems to work anymore - He is not being followed by Psych - Seen and evaluated by Dr. Joe, he is now on Effexor Plan: He remains fairly stable Continue current treatment [facility] protocol: Ativan/Librium MVI, Folic Acid and Thiamine Ativan IV for abortive seizures PRN Withdrawal Meds: Clonidine, BB, Hydralazine and Seroquel Routine AM labs DVT ppx: Lovenox SubQ GI ppx: PPI SW/CM for d/c planning Code status: 1
[2016-07-15] MEDS: Lisinopril 10 MG Tab PO SCH (08:05)
[2016-07-15] MEDS: Venlafaxine 37.5 MG Cap.ER PO SCH (08:05)
[2016-07-15] MEDS: Venlafaxine 75 MG Cap.ER PO SCH (08:05)
[2016-07-15] MEDS: Folic Acid 1 MG Tab PO SCH (08:06)
[2016-07-15] MEDS: Famotidine 20 MG Tab PO SCH ×3 (08:06→21:17)
[2016-07-15] MEDS: Thiamine 100 MG Tab PO SCH (08:06)
[2016-07-15] MEDS: Enoxaparin 40 MG/0.4 ML Syringe SUBCUT SCH (08:06)
[2016-07-15] MEDS ORDERED: Furosemide 20 MG Tab PO ONE (08:30)
[2016-07-15] MEDS: LORazepam 2 MG/ML MDV IVPUSH PRN ×2 (09:16→16:13)
[2016-07-15] MEDS: hydrALAZINE 20 MG/ML SDV IVPUSH PRN ×2 (11:06→19:43)
[2016-07-15] MEDS ORDERED: cloNIDine 0.3 MG/Day Transdermal Patch TRDERM ONE (12:30)
[2016-07-15] MEDS: chlordiazePOXIDE 25 MG Cap PO SCH ×2 (14:18→21:16)
[2016-07-15] MEDS: Sodium Chloride 0.9% 10 ML Syringe FLUSH PRN (19:45)
[2016-07-15] MEDS: QUEtiapine 25 MG Tab PO SCH (21:16)
[2016-07-16] MEDS: LORazepam 0.5 MG Tab PO PRN ×2 (04:08→22:16)
--- NOTE | 2016-07-16 07:36 | PCM.PN ---
- General Info Date of Service: 07/16/16 Admission Dx/Problem (Free Text): Admission Diagnosis/Problem Admission Diagnosis/Problem Alcohol withdrawal syndrome Subjective Update: Follow up Functional Status: Reports: pain controlled, tolerating diet, ambulating, urinating. Denies: new symptoms - Review of Systems General: Reports: Fever, Weakness, Fatigue, Malaise HEENT: Reports: no symptoms Pulmonary: Reports: shortness of breath Cardiovascular: Reports: Chest Pain Gastrointestinal: Reports: Abdominal pain, Nausea, Vomiting Genitourinary: Reports: no symptoms Musculoskeletal: Reports: no symptoms Skin: Reports: no symptoms Neurological: Denies: Confusion, Dizziness, Difficulty Walking, Weakness, Gait Disturbance Psychiatric: Denies: confusion, depression, anxiety, agitation, cravings, hallucinations, homicidal ideation Systems Review Comment:: No overnight or acute issues. CIWA is now <5. He has no new complaints. - Patient Data Vitals - most recent: Last Vital Signs Temp 36.6 C 07/16/16 04:10 Pulse 88 07/14/16 19:49 Resp 16 07/16/16 04:10 BP 99/72 07/16/16 04:10 Pulse Ox 99 07/16/16 04:10 Weight - most recent: 78.834 kg I&O - last 24 hours: Intake & Output 07/15/16 07/16/16 07/16/16 22:59 06:59 14:59 Intake Total 3005 400 Output Total 1250 500 Balance 1755 -100 Lab Results last 24 hrs: Laboratory Results - last 24 hr 07/16/16 07/16/16 Range/Units 05:06 05:06 WBC 6.50 (4.23-9.07) K/mm3 RBC 4.27 L (4.63-6.08) M/mm3 Hgb 13.0 L (13.7-17.5) gm/L Hct 38.9 L (40.1-51.0) % MCV 91.1 (79.0-92.2) fl MCH 30.4 (25.7-32.2) pg MCHC 33.4 (32.2-35.5) g/dl RDW Std Deviation 47.4 H (35.1-43.9) fL Plt Count 232 (163-337) K/mm3 MPV 9.4 (9.4-12.3) fl Neut % (Auto) 69.7 H (34.0-67.9) % Lymph % (Auto) 18.5 L (21.8-53.1) % [place] % (Auto) 9.7 (5.3-12.2) % Eos % (Auto) 1.7 (0.8-7.0) Baso % (Auto) 0.2 (0.1-1.2) % Neut # (Auto) 4.54 (1.78-5.38) K/mm3 Lymph # (Auto) 1.20 L (1.32-3.57) K/mm3 [place] # (Auto) 0.63 (0.30-0.82) K/mm3 Eos # (Auto) 0.11 (0.04-0.54) K/mm3 Baso # (Auto) 0.01 (0.01-0.08) K/mm3 Manual Slide Review Not Reportable Sodium 137 (136-145) mEq/L Potassium 3.6 (3.5-5.1) mEq/L Chloride 105 (98-107) mEq/L Carbon Dioxide 25 (21-32) mEq/L Anion Gap 10.6 (5-15) BUN 11 (7-18) mg/dL Creatinine 0.8 (0.7-1.3) mg/dL Est Cr Clr Drug Dosing 109.49 mL/min Estimated GFR (MDRD) > 60 (>60) mL/min BUN/Creatinine Ratio 13.8 L (14-18) Glucose 98 (74-106) mg/dL Calcium 8.4 L (8.5-10.1) mg/dL Magnesium 2.0 (1.8-2.4) mg/dl Total Bilirubin 0.7 (0.2-1.0) mg/dL AST 22 (15-37) U/L ALT 38 (16-63) U/L Alkaline Phosphatase 60 (46-116) U/L Total Protein 5.6 L (6.4-8.2) g/dl Albumin 2.8 L (3.4-5.0) g/dl Globulin 2.8 gm/dL Albumin/Globulin Ratio 1.0 (1-2) Med Orders - Current: Current Medications Acetaminophen (Tylenol) 650 mg PO Q4H PRN PRN Reason: Pain (Mild 1-3)/fever Hydrocodone Bitart/Acetaminophen ([place] 325-5 Mg) 1 tab PO Q4H PRN PRN Reason: Pain (moderate 4-6) Albuterol/Ipratropium (Duoneb 3.0-0.5 Mg/3 Ml) 3 ml NEB Q4H PRN PRN Reason: Shortness Of Breath/wheezing Bisacodyl (Dulcolax) 5 mg PO DAILY PRN PRN Reason: Constipation Chlordiazepoxide HCl (Librium) 50 mg PO TID [facility] Last Admin: 07/15/16 21:16 Dose: 50 mg Diphenhydramine HCl (Benadryl) 50 mg IVPUSH BEDTIME PRN PRN Reason: Insomnia Docusate Sodium (Colace) 100 mg PO BID PRN PRN Reason: Constipation Enoxaparin Sodium (Lovenox) 40 mg SUBCUT DAILY [facility] Last Admin: 07/15/16 08:06 Dose: 40 mg Famotidine (Pepcid) 20 mg PO Q12H [facility] Last Admin: 07/15/16 21:16 Dose: 20 mg Famotidine (Pepcid) 20 mg PO BID [facility] Last Admin: 07/15/16 21:17 Dose: Not Given Folic Acid (Folic Acid) 1 mg PO DAILY [facility] Stop: 07/16/16 09:01 Last Admin: 07/15/16 08:06 Dose: 1 mg Hydralazine HCl (Apresoline) 20 mg IVPUSH Q4H PRN PRN Reason: Hypertension Last Admin: 07/15/16 19:43 Dose: 20 mg Hydromorphone HCl (Dilaudid) 0.25 mg IVPUSH Q2H PRN PRN Reason: Pain (severe 7-10) Sodium Chloride (Normal Saline) 1,000 mls @ 125 mls/hr IV ASDIRECTED [facility] Last Admin: 07/15/16 04:15 Dose: 125 mls/hr Lisinopril (Prinivil) 10 mg PO DAILY [facility] Last Admin: 07/15/16 08:05 Dose: 10 mg Lorazepam (Ativan) 2 mg IVPUSH Q4H PRN PRN Reason: Seizures Lorazepam (Ativan) 1 mg IVPUSH Q4H PRN; Protocol PRN Reason: Withdrawal Symptoms Last Admin: 07/15/16 16:13 Dose: 1 mg Lorazepam (Ativan) 0.5 mg PO TID PRN PRN Reason: Anxiety Last Admin: 07/16/16 04:08 Dose: 0.5 mg Magnesium Sulfate (Pharmacy To Dose - Magnesium Replacement) 1 dose .XX ASDIRECTED [facility] Metoprolol Tartrate (Lopressor) 5 mg IVPUSH Q4H PRN PRN Reason: Tachycardia Last Admin: 07/14/16 06:18 Dose: 5 mg Miscellaneous Information (Remove Patch) 0 ea TRDERM ONETIME ONE Stop: 07/22/16 12:01 Ondansetron HCl (Zofran) 4 mg IV Q6H PRN PRN Reason: Nausea/Vomiting Potassium Chloride (Pharmacy To Dose - Potassium Replacement) 1 dose .XX ASDIRECTED [facility] Quetiapine Fumarate (Seroquel) 50 mg PO BEDTIME [facility] Last Admin: 07/15/16 21:16 Dose: 50 mg Senna/Docusate Sodium (Senna Plus) 1 tab PO BID PRN PRN Reason: Constipation Sodium Chloride (Saline Flush) 10 ml FLUSH ASDIRECTED PRN PRN Reason: Keep Vein Open Last Admin: 07/15/16 19:45 Dose: 10 ml Temazepam (Restoril) 30 mg PO BEDTIME PRN PRN Reason: Sleep Last Admin: 07/13/16 21:11 Dose: 30 mg Thiamine HCl (Vitamin B-1) 100 mg PO DAILY [facility] Last Admin: 07/15/16 08:06 Dose: 100 mg Venlafaxine HCl (Effexor Xr) 37.5 mg PO DAILY [facility] Last Admin: 07/15/16 08:05 Dose: 37.5 mg Venlafaxine HCl (Effexor Xr) 75 mg PO DAILY [facility] Last Admin: 07/15/16 08:05 Dose: 75 mg Discontinued Medications Chlordiazepoxide HCl (Librium) 25 mg PO ONETIME ONE Stop: 07/13/16 19:00 Last Admin: 07/13/16 19:09 Dose: 25 mg Chlordiazepoxide HCl (Librium) 25 mg PO Q8H PRN PRN Reason: Withdrawal Symptoms Chlordiazepoxide HCl (Librium) 25 mg PO Q8H PRN PRN Reason: Withdrawal Symptoms Last Admin: 07/15/16 06:44 Dose: 25 mg Clonidine HCl (Catapres-Tts 3) 0.3 mg TRDERM Q7D ONE Stop: 07/15/16 12:31 Last Admin: 07/15/16 12:34 Dose: 0.3 mg Fluoxetine HCl (Prozac) 10 mg PO DAILY [facility] Furosemide (Lasix) 20 mg PO ONETIME ONE Stop: 07/15/16 08:31 Last Admin: 07/15/16 09:01 Dose: 20 mg Thiamine HCl 200 mg/ Sodium (Chloride) 52 mls @ 100 mls/hr IV ONETIME ONE Stop: 07/13/16 20:30 Last Admin: 07/13/16 21:11 Dose: 100 mls/hr Magnesium Sulfate 2 gm/ Premix 50 mls @ 25 mls/hr IV ONETIME ONE Stop: 07/14/16 09:29 Last Admin: 07/14/16 07:41 Dose: 25 mls/hr Lorazepam (Ativan) 1 mg IVPUSH ONETIME ONE Stop: 07/13/16 19:00 Last Admin: 07/13/16 19:09 Dose: 1 mg Multivitamins (Thera) 1 each PO ONETIME ONE Stop: 07/13/16 20:01 Last Admin: 07/13/16 21:12 Dose: 1 each Pantoprazole Sodium (Protonix Iv) 40 mg IV Q12H [facility] Last Admin: 07/14/16 08:05 Dose: 40 mg Quetiapine Fumarate (Seroquel) 25 mg PO BID [facility] Last Admin: 07/14/16 08:04 Dose: 25 mg - Exam General: cooperative, no acute distress, other (somewhat sedated) HEENT: Pupils equal, Pupils reactive, EOMI, Mucous membr. moist/pink Neck: supple, trachea midline, no JVD, no thyromegaly Lungs: Clear to auscultation, Normal respiratory effort Cardiovascular: Regular Rate, Regular Rhythm Abdomen: bowel sounds present, soft, no tenderness, no distension (Male) Exam: Deferred Back Exam: normal inspection, decreased range of motion Extremities: no edema, normal pulses, no tenderness/swelling, no clubbing, no cyanosis, no calf tenderness Peripheral Pulses: 3+: posterior tibial (L), posterior tibial (R), dorsalis pedis (L), dorsalis pedis (R) Skin: warm, dry, intact Neurological: no new focal deficit Psy/Mental Status: alert, normal affect, normal mood - Problem List Review Problem List Initiated/Reviewed/Updated: Yes - My Orders Last 24 Hours: My Active Orders 07/15/16 10:25 Patient Status [ADT] Routine 07/15/16 15:00 chlordiazePOXIDE [Librium] 50 mg PO TID 07/15/16 21:00 Famotidine [Pepcid] 20 mg PO Q12H 07/17/16 05:11 CBC WITH AUTO DIFF [HEME] AM COMPREHENSIVE METABOLIC PN,CMP [CHEM] AM MAGNESIUM [CHEM] AM 07/22/16 12:00 Remove Patch 0 ea TRDERM ONETIME ONE - Plan Plan:: Assessment/Plan: Acute: ETOH Withdrawal Syndrome, Improving - CIWA score ins now 5-6 - DUNIA is 0.26 on admission - Drinks half pint of vodka daily - CIWA protocol - Supportive care Chronic ETOH Abuse - Drinks for over 40 years now - He has been in chemical rehab once in the past, 7-8 years ago - He follows [facility] - He wants get in chemical rehab but he needs to detox prior to placement Substance Abuse - Admit to using Marijuana - Most recent use 1 week ago - UDS negative for THC Anxiety/Depression - He has been on Prozac for so long but it dose not seems to work anymore - He is not being followed by Psych - Seen and evaluated by Dr. Joe, he is now on Effexor Plan: He remains fairly stable Continue current treatment CIWA protocol: Ativan/Librium MVI, Folic Acid and Thiamine Ativan IV for abortive seizures PRN Withdrawal Meds: Clonidine, BB, Hydralazine and Seroquel Routine AM labs DVT ppx: Lovenox SubQ GI ppx: PPI SW/CM for d/c planning Code status: 1 LOS anticipate > 96 hrs, he still symptomatic and possible inpatient rehab placement
[2016-07-16] MEDS: Venlafaxine 75 MG Cap.ER PO SCH (08:18)
[2016-07-16] MEDS: Thiamine 100 MG Tab PO SCH (08:18)
[2016-07-16] MEDS: Lisinopril 10 MG Tab PO SCH (08:19)
[2016-07-16] MEDS: Enoxaparin 40 MG/0.4 ML Syringe SUBCUT SCH (08:19)
[2016-07-16] MEDS: chlordiazePOXIDE 25 MG Cap PO SCH ×2 (08:19→14:15)
[2016-07-16] MEDS: Folic Acid 1 MG Tab PO SCH (08:19)
[2016-07-16] MEDS: Famotidine 20 MG Tab PO SCH ×3 (08:19→20:18)
[2016-07-16] MEDS: Venlafaxine 37.5 MG Cap.ER PO SCH (08:19)
[2016-07-16] MEDS ORDERED: Sodium Chloride 0.9% 500 ML IV ONE (09:52)
[2016-07-16] MEDS ORDERED: Sodium Chloride 0.9% 500 ML IV SCH (10:07)
[2016-07-16] MEDS: QUEtiapine 25 MG Tab PO SCH (20:17)
[2016-07-16] MEDS ORDERED: chlordiazePOXIDE 25 MG Cap PO SCH (21:00)
[2016-07-17] MEDS: Famotidine 20 MG Tab PO SCH ×2 (08:41→20:41)
[2016-07-17] MEDS: Venlafaxine 75 MG Cap.ER PO SCH (08:41)
[2016-07-17] MEDS: Lisinopril 10 MG Tab PO SCH (08:41)
[2016-07-17] MEDS: Thiamine 100 MG Tab PO SCH (08:41)
[2016-07-17] MEDS: Enoxaparin 40 MG/0.4 ML Syringe SUBCUT SCH (08:42)
[2016-07-17] MEDS: Magnesium Oxide 400 MG Tab PO SCH ×2 (12:05→20:41)
--- NOTE | 2016-07-17 12:53 | PCM.PN ---
- General Info Date of Service: 07/17/16 Admission Dx/Problem (Free Text): Admission Diagnosis/Problem Admission Diagnosis/Problem Alcohol withdrawal syndrome Subjective Update: Follow up Functional Status: Reports: pain controlled, tolerating diet, ambulating, urinating. Denies: new symptoms - Review of Systems General: Denies: Fever, Weakness, Fatigue, Malaise, Chills HEENT: Reports: no symptoms Pulmonary: Denies: shortness of breath Cardiovascular: Denies: Chest Pain Gastrointestinal: Denies: Abdominal pain, Diarrhea, Flatus, Nausea, Vomiting Genitourinary: Reports: no symptoms Musculoskeletal: Reports: no symptoms Skin: Reports: no symptoms Neurological: Denies: Confusion, Difficulty Walking, Weakness, Gait Disturbance Psychiatric: Denies: confusion, depression, anxiety, agitation, hallucinations, suicidal ideation Systems Review Comment:: No overnight or acute issues. He feels not quite ready for d/c. He has no plan in place for inpatient treatment after d/c. His CIWA score is bet 2-3. - Patient Data Vitals - most recent: Last Vital Signs Temp 36.4 C 07/17/16 08:38 Pulse 65 07/17/16 08:38 Resp 18 07/17/16 08:38 BP 111/78 07/17/16 08:41 Pulse Ox 96 07/17/16 08:38 Weight - most recent: 78.97 kg I&O - last 24 hours: Intake & Output 07/16/16 07/17/16 07/17/16 22:59 06:59 14:59 Intake Total 1510 720 Output Total 250 1000 Balance 1260 -280 Lab Results last 24 hrs: Laboratory Results - last 24 hr 07/17/16 07/17/16 Range/Units 04:50 04:50 WBC 6.40 (4.23-9.07) K/mm3 RBC 3.99 L (4.63-6.08) M/mm3 Hgb 12.3 L (13.7-17.5) gm/L Hct 36.8 L (40.1-51.0) % MCV 92.2 (79.0-92.2) fl MCH 30.8 (25.7-32.2) pg MCHC 33.4 (32.2-35.5) g/dl RDW Std Deviation 47.9 H (35.1-43.9) fL Plt Count 214 (163-337) K/mm3 MPV 9.3 L (9.4-12.3) fl Neut % (Auto) 62.0 (34.0-67.9) % Lymph % (Auto) 24.7 (21.8-53.1) % [place] % (Auto) 9.7 (5.3-12.2) % Eos % (Auto) 3.1 (0.8-7.0) Baso % (Auto) 0.2 (0.1-1.2) % Neut # (Auto) 3.97 (1.78-5.38) K/mm3 Lymph # (Auto) 1.58 (1.32-3.57) K/mm3 [place] # (Auto) 0.62 (0.30-0.82) K/mm3 Eos # (Auto) 0.20 (0.04-0.54) K/mm3 Baso # (Auto) 0.01 (0.01-0.08) K/mm3 Sodium 137 (136-145) mEq/L Potassium 3.8 (3.5-5.1) mEq/L Chloride 104 (98-107) mEq/L Carbon Dioxide 27 (21-32) mEq/L Anion Gap 9.8 (5-15) BUN 10 (7-18) mg/dL Creatinine 0.9 (0.7-1.3) mg/dL Est Cr Clr Drug Dosing 97.33 mL/min Estimated GFR (MDRD) > 60 (>60) mL/min BUN/Creatinine Ratio 11.1 L (14-18) Glucose 89 (74-106) mg/dL Calcium 8.5 (8.5-10.1) mg/dL Magnesium 1.9 (1.8-2.4) mg/dl Total Bilirubin 0.8 (0.2-1.0) mg/dL AST 28 (15-37) U/L ALT 44 (16-63) U/L Alkaline Phosphatase 53 (46-116) U/L Total Protein 5.8 L (6.4-8.2) g/dl Albumin 2.8 L (3.4-5.0) g/dl Globulin 3.0 gm/dL Albumin/Globulin Ratio 0.9 L (1-2) Med Orders - Current: Current Medications Acetaminophen (Tylenol) 650 mg PO Q4H PRN PRN Reason: Pain (Mild 1-3)/fever Hydrocodone Bitart/Acetaminophen ([place] 325-5 Mg) 1 tab PO Q4H PRN PRN Reason: Pain (moderate 4-6) Albuterol/Ipratropium (Duoneb 3.0-0.5 Mg/3 Ml) 3 ml NEB Q4H PRN PRN Reason: Shortness Of Breath/wheezing Bisacodyl (Dulcolax) 5 mg PO DAILY PRN PRN Reason: Constipation Docusate Sodium (Colace) 100 mg PO BID PRN PRN Reason: Constipation Last Admin: 07/16/16 14:15 Dose: 100 mg Enoxaparin Sodium (Lovenox) 40 mg SUBCUT DAILY [facility] Last Admin: 07/17/16 08:42 Dose: 40 mg Famotidine (Pepcid) 20 mg PO BID [facility] Last Admin: 07/17/16 08:41 Dose: 20 mg Hydralazine HCl (Apresoline) 20 mg IVPUSH Q4H PRN PRN Reason: Hypertension Last Admin: 07/15/16 19:43 Dose: 20 mg Hydromorphone HCl (Dilaudid) 0.25 mg IVPUSH Q2H PRN PRN Reason: Pain (severe 7-10) Lisinopril (Prinivil) 10 mg PO DAILY [facility] Last Admin: 07/17/16 08:41 Dose: 10 mg Lorazepam (Ativan) 2 mg IVPUSH Q4H PRN PRN Reason: Seizures Lorazepam (Ativan) 1 mg IVPUSH Q4H PRN; Protocol PRN Reason: Withdrawal Symptoms Last Admin: 07/15/16 16:13 Dose: 1 mg Lorazepam (Ativan) 0.5 mg PO TID PRN PRN Reason: Anxiety Last Admin: 07/16/16 22:16 Dose: 0.5 mg Magnesium Oxide (Magnesium Oxide) 400 mg PO BID [facility] Stop: 07/18/16 21:01 Last Admin: 07/17/16 12:05 Dose: 400 mg Magnesium Sulfate (Pharmacy To Dose - Magnesium Replacement) 1 dose .XX ASDIRECTED [facility] Metoprolol Tartrate (Lopressor) 5 mg IVPUSH Q4H PRN PRN Reason: Tachycardia Last Admin: 07/14/16 06:18 Dose: 5 mg Miscellaneous Information (Remove Patch) 0 ea TRDERM ONETIME ONE Stop: 07/22/16 12:01 Ondansetron HCl (Zofran) 4 mg IV Q6H PRN PRN Reason: Nausea/Vomiting Potassium Chloride (Pharmacy To Dose - Potassium Replacement) 1 dose .XX ASDIRECTED [facility] Quetiapine Fumarate (Seroquel) 50 mg PO BEDTIME [facility] Last Admin: 07/16/16 20:17 Dose: 50 mg Senna/Docusate Sodium (Senna Plus) 1 tab PO BID PRN PRN Reason: Constipation Sodium Chloride (Saline Flush) 10 ml FLUSH ASDIRECTED PRN PRN Reason: Keep Vein Open Last Admin: 07/15/16 19:45 Dose: 10 ml Temazepam (Restoril) 30 mg PO BEDTIME PRN PRN Reason: Sleep Last Admin: 07/13/16 21:11 Dose: 30 mg Thiamine HCl (Vitamin B-1) 100 mg PO DAILY [facility] Last Admin: 07/17/16 08:41 Dose: 100 mg Venlafaxine HCl (Effexor Xr) 75 mg PO DAILY [facility] Last Admin: 07/17/16 08:41 Dose: 75 mg Discontinued Medications Chlordiazepoxide HCl (Librium) 25 mg PO ONETIME ONE Stop: 07/13/16 19:00 Last Admin: 07/13/16 19:09 Dose: 25 mg Chlordiazepoxide HCl (Librium) 25 mg PO Q8H PRN PRN Reason: Withdrawal Symptoms Chlordiazepoxide HCl (Librium) 25 mg PO Q8H PRN PRN Reason: Withdrawal Symptoms Last Admin: 07/15/16 06:44 Dose: 25 mg Chlordiazepoxide HCl (Librium) 50 mg PO TID [facility] Last Admin: 07/16/16 14:15 Dose: 50 mg Chlordiazepoxide HCl (Librium) 25 mg PO TID [facility] Stop: 07/17/16 06:00 Last Admin: 07/16/16 20:17 Dose: 25 mg Clonidine HCl (Catapres-Tts 3) 0.3 mg TRDERM Q7D ONE Stop: 07/15/16 12:31 Last Admin: 07/15/16 12:34 Dose: 0.3 mg Diphenhydramine HCl (Benadryl) 50 mg IVPUSH BEDTIME PRN PRN Reason: Insomnia Famotidine (Pepcid) 20 mg PO Q12H [facility] Last Admin: 07/16/16 08:22 Dose: Not Given Fluoxetine HCl (Prozac) 10 mg PO DAILY [facility] Folic Acid (Folic Acid) 1 mg PO DAILY [facility] Stop: 07/16/16 09:01 Last Admin: 07/16/16 08:19 Dose: 1 mg Furosemide (Lasix) 20 mg PO ONETIME ONE Stop: 07/15/16 08:31 Last Admin: 07/15/16 09:01 Dose: 20 mg Sodium Chloride (Normal Saline) 1,000 mls @ 125 mls/hr IV ASDIRECTED [facility] Last Admin: 07/15/16 04:15 Dose: 125 mls/hr Thiamine HCl 200 mg/ Sodium (Chloride) 52 mls @ 100 mls/hr IV ONETIME ONE Stop: 07/13/16 20:30 Last Admin: 07/13/16 21:11 Dose: 100 mls/hr Magnesium Sulfate 2 gm/ Premix 50 mls @ 25 mls/hr IV ONETIME ONE Stop: 07/14/16 09:29 Last Admin: 07/14/16 07:41 Dose: 25 mls/hr Sodium Chloride (Normal Saline) 500 mls @ 999 mls/hr IV ASDIRECTED ONE Stop: 07/16/16 10:22 Last Admin: 07/16/16 10:09 Dose: Not Given Sodium Chloride (Normal Saline) 500 mls @ 999 mls/hr IV ASDIRECTED [facility] Stop: 07/16/16 10:38 Last Admin: 07/16/16 10:15 Dose: 999 mls/hr Lorazepam (Ativan) 1 mg IVPUSH ONETIME ONE Stop: 07/13/16 19:00 Last Admin: 07/13/16 19:09 Dose: 1 mg Multivitamins (Thera) 1 each PO ONETIME ONE Stop: 07/13/16 20:01 Last Admin: 07/13/16 21:12 Dose: 1 each Pantoprazole Sodium (Protonix Iv) 40 mg IV Q12H [facility] Last Admin: 07/14/16 08:05 Dose: 40 mg Quetiapine Fumarate (Seroquel) 25 mg PO BID [facility] Last Admin: 07/14/16 08:04 Dose: 25 mg Venlafaxine HCl (Effexor Xr) 37.5 mg PO DAILY [facility] Last Admin: 07/16/16 08:19 Dose: 37.5 mg - Exam General: alert, oriented, cooperative, no acute distress HEENT: Pupils equal, Pupils reactive, EOMI, Mucous membr. moist/pink Neck: supple, trachea midline, no JVD, no thyromegaly Lungs: Clear to auscultation, Normal respiratory effort Cardiovascular: Regular Rate, Regular Rhythm Abdomen: bowel sounds present, soft, no tenderness, no distension (Male) Exam: Deferred Back Exam: normal inspection, full range of motion Extremities: no edema, normal pulses, no tenderness/swelling, no clubbing, no cyanosis, no calf tenderness Peripheral Pulses: 3+: posterior tibial (L), posterior tibial (R), dorsalis pedis (L), dorsalis pedis (R) Skin: warm, dry, intact Neurological: no new focal deficit Psy/Mental Status: alert, normal affect, normal mood, withdrawal symptoms Physical Findings Comments:: mild hand tremors - Problem List Review Problem List Initiated/Reviewed/Updated: Yes - My Orders Last 24 Hours: My Active Orders 07/17/16 11:00 Magnesium Oxide 400 mg PO BID 07/22/16 12:00 Remove Patch 0 ea TRDERM ONETIME ONE - Plan Plan:: Assessment/Plan: Acute: ETOH Withdrawal Syndrome, Improving - CIWA score is now 52-3 - DUNIA is 0.26 on admission - Drinks half pint of vodka daily - WA protocol - Supportive care Chronic ETOH Abuse - Drinks for over 40 years now - He has been in chemical rehab once in the past, 7-8 years ago - He follows [facility] - He wants get in chemical rehab but he needs to detox prior to placement Substance Abuse - Admit to using Marijuana - Most recent use 1 week ago - UDS negative for THC Anxiety/Depression - He has been on Prozac for so long but it dose not seems to work anymore - He is not being followed by Psych - Seen and evaluated by Dr. Joe, he is now on Effexor Plan: He is clinically stable Continue current treatment CIWA protocol: Ativan MVI, Folic Acid and Thiamine Ativan IV for abortive seizures PRN Withdrawal Meds: Clonidine, BB, Hydralazine and Seroquel Routine AM labs DVT ppx: Lovenox SubQ GI ppx: PPI SW/CM for d/c planning Code status: 1 LOS anticipate > 96 hrs, he has no plan in place for treatment after discharge. He is high risk for relapse
[2016-07-17] MEDS: QUEtiapine 25 MG Tab PO SCH (20:41)
--- NOTE | 2016-07-17 23:27 | PCM.DCSUM1 ---
Discharge Summary - Hospital Course Brief History: This is a 61 yo white male with past medical hx/o Anxiety, Depression, HTN, Chronic Alcohol Dependence who presents to ED Intoxicated with DUNIA level of 0.26. He was recently evaluated at [facility] but needed to detox prior to inpatient treatment. - Discharge Data Discharge Date: 07/18/16 Discharge Disposition: Home, Self-Care 01 Condition: Good - Discharge Diagnosis/Problem(s) (1) Alcohol withdrawal SNOMED Code(s): 740537451 ICD Code: F10.239 - ALCOHOL DEPENDENCE WITH WITHDRAWAL, UNSPECIFIED Status : Resolved (2) Substance abuse SNOMED Code(s): 29025402 ICD Code: F19.10 - OTHER PSYCHOACTIVE SUBSTANCE ABUSE, UNCOMPLICATED Status : Chronic (3) Anxiety and depression SNOMED Code(s): 706344224 ICD Code: F41.9 - ANXIETY DISORDER, UNSPECIFIED; F32.9 - MAJOR DEPRESSIVE DISORDER, SINGLE EPISODE, UNSPECIFIED Status: Chronic (4) Chronic alcohol abuse SNOMED Code(s): 551966295 ICD Code: F10.10 - ALCOHOL ABUSE, UNCOMPLICATED Status: Chronic - Patient Summary/Data Operative Procedure(s) Performed: None Complications: None Consults: Consultations 07/13/16 20:00 Consult to Case Management [CONS] Routine Consult to [place] [CONS] Routine OT Evaluation and Treatment [CONS] Routine PT Evaluation and Treatment [CONS] Routine 07/13/16 20:39 Consult to Physician [CONS] Routine 07/14/16 11:36 Consult for Substance Abuse [CONS] Routine Hospital Course: Patient was primarily admitted for alcohol detoxification. He carries a long standing hx/o chronic ETOH abuse for over 40 years now. He has also carries an underlying psychiatric illness which are not fully controlled. Patient drinks 1/ 2 a pint vodka daily. 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 This we felt, strongly related to his alcohol abuse/use. On presentation to ED, he was found to have a DUNIA 0.26 and with mild withdrawal symptoms. Patient was referred here by his SAC for detox. Patient was provided supportive care and CIWA protocol. Slowly, he improved on this regimen. During this admission, Dr. Joe was consulted for psychiatric care and patient was placed on Effexor 75 mg po daily. Patient was never suicidal of homocidal throughout his hospital stay. Patient has done well since admission. His hospital course was uncomplicated. He is now ready for discharge. He has a plan-in place right after discharge. He he is to call his SAC and attend AA starting [facility]. His daughter from out of town will be coming in as well to provide emotional and family support. Patient was advised to follow up with his PCP after discharge. He will be set up to see Elissa Castaneda NP for follow up on his anxiety and depression. Patient was further advised to call his SAC if he experience a strong urge to drink. He expressed understanding an din agreement with the plans as discussed above. All questions were answered. - Patient Instructions Diet: Usual Diet as Tolerated Activity: As Tolerated Driving: Do Not Drive Showering/Bathing: May Shower Notify Provider of: Fever, Increased Pain, Nausea and/or Vomiting Other/Special Instructions: - Please take all medications as directed. - Recommened inpatient rehab. - Follow up with Bernadine Petersen NP outpatient for Psych care. - If you feel urge to drink, call your SAC for further help. - Follow up with your PCP as scheduled - Discharge Plan Prescriptions/Med Rec: QUEtiapine [SEROquel] 50 mg PO BEDTIME #30 tablet Venlafaxine [Effexor XR] 75 mg PO DAILY #30 cap.er Home Medications: Home Meds Multivitamin [Multivitamins] 1 each PO DAILY 12/20/13 [History] LORazepam 0.5 mg PO TID PRN 07/13/16 [History] Lisinopril 10 mg PO DAILY 07/13/16 [History] QUEtiapine [SEROquel] 50 mg PO BEDTIME #30 tablet 07/17/16 [Rx] Venlafaxine [Effexor XR] 75 mg PO DAILY #30 cap.er 07/17/16 [Rx] Patient Handouts: Alcohol Intoxication, [id number], Alcohol Withdrawal, Easy- to-Read Referrals: Kayley Padgett NP [Primary Care Provider] - 07/26/16 11:00 am (Please check-in at 10:45 am.) Elissa Castaneda NP [Nurse Practitioner] - 08/23/16 4:00 pm (Please check in at 3:30 pm on at desk on 2nd floor.) - Discharge Summary/Plan Comment DC Time >30 min.: Yes (40 mins) Discharge Summary/Plan Comment: Discharge to Home - General Info Date of Service: 07/18/16 Admission Dx/Problem (Free Text: Admission Diagnosis/Problem Admission Diagnosis/Problem Alcohol withdrawal syndrome Subjective Update: Follow up Functional Status: Reports: pain controlled, tolerating diet, ambulating, urinating. Denies: new symptoms - Review of Systems General: Denies: Fever, Weakness, Fatigue, Malaise, Chills HEENT: Reports: no symptoms Pulmonary: Denies: shortness of breath Cardiovascular: Denies: Chest Pain, Palpitations, Dyspnea on Exertion Gastrointestinal: Denies: Abdominal pain, Constipation, Decreased appetite, Diarrhea, Difficulty swallowing, Nausea, Vomiting Genitourinary: Reports: no symptoms Musculoskeletal: Reports: no symptoms Skin: Reports: no symptoms Neurological: Denies: Confusion, Dizziness, Difficulty Walking, Weakness, Gait Disturbance Psychiatric: Denies: confusion, depression, anxiety, agitation, cravings, hallucinations, suicidal ideation Systems Review Comment: No overnight or acute issues. He is doing relatively well. CIWA score is essentially zero at this point. He has no new complaints. - Patient Data Vitals - Most Recent: Last Vital Signs Temp 36.9 C 07/17/16 15:00 Pulse 66 07/17/16 15:00 Resp 18 07/17/16 15:00 BP 111/72 07/17/16 15:00 Pulse Ox 96 07/17/16 15:00 Weight - Most Recent: 78.97 kg I&O - Last 24 hours: Intake & Output 07/17/16 07/17/16 07/18/16 14:59 22:59 06:59 Intake Total 990 Output Total 900 Balance 90 Lab Results - Last 24 hrs: Laboratory Results - last 24 hr 07/17/16 07/17/16 Range/Units 04:50 04:50 WBC 6.40 (4.23-9.07) K/mm3 RBC 3.99 L (4.63-6.08) M/mm3 Hgb 12.3 L (13.7-17.5) gm/L Hct 36.8 L (40.1-51.0) % MCV 92.2 (79.0-92.2) fl MCH 30.8 (25.7-32.2) pg MCHC 33.4 (32.2-35.5) g/dl RDW Std Deviation 47.9 H (35.1-43.9) fL Plt Count 214 (163-337) K/mm3 MPV 9.3 L (9.4-12.3) fl Neut % (Auto) 62.0 (34.0-67.9) % Lymph % (Auto) 24.7 (21.8-53.1) % [place] % (Auto) 9.7 (5.3-12.2) % Eos % (Auto) 3.1 (0.8-7.0) Baso % (Auto) 0.2 (0.1-1.2) % Neut # (Auto) 3.97 (1.78-5.38) K/mm3 Lymph # (Auto) 1.58 (1.32-3.57) K/mm3 [place] # (Auto) 0.62 (0.30-0.82) K/mm3 Eos # (Auto) 0.20 (0.04-0.54) K/mm3 Baso # (Auto) 0.01 (0.01-0.08) K/mm3 Sodium 137 (136-145) mEq/L Potassium 3.8 (3.5-5.1) mEq/L Chloride 104 (98-107) mEq/L Carbon Dioxide 27 (21-32) mEq/L Anion Gap 9.8 (5-15) BUN 10 (7-18) mg/dL Creatinine 0.9 (0.7-1.3) mg/dL Est Cr Clr Drug Dosing 97.33 mL/min Estimated GFR (MDRD) > 60 (>60) mL/min BUN/Creatinine Ratio 11.1 L (14-18) Glucose 89 (74-106) mg/dL Calcium 8.5 (8.5-10.1) mg/dL Magnesium 1.9 (1.8-2.4) mg/dl Total Bilirubin 0.8 (0.2-1.0) mg/dL AST 28 (15-37) U/L ALT 44 (16-63) U/L Alkaline Phosphatase 53 (46-116) U/L Total Protein 5.8 L (6.4-8.2) g/dl Albumin 2.8 L (3.4-5.0) g/dl Globulin 3.0 gm/dL Albumin/Globulin Ratio 0.9 L (1-2) Med Orders - Current: Current Medications Acetaminophen (Tylenol) 650 mg PO Q4H PRN PRN Reason: Pain (Mild 1-3)/fever Hydrocodone Bitart/Acetaminophen ([place] 325-5 Mg) 1 tab PO Q4H PRN PRN Reason: Pain (moderate 4-6) Albuterol/Ipratropium (Duoneb 3.0-0.5 Mg/3 Ml) 3 ml NEB Q4H PRN PRN Reason: Shortness Of Breath/wheezing Bisacodyl (Dulcolax) 5 mg PO DAILY PRN PRN Reason: Constipation Docusate Sodium (Colace) 100 mg PO BID PRN PRN Reason: Constipation Last Admin: 07/16/16 14:15 Dose: 100 mg Enoxaparin Sodium (Lovenox) 40 mg SUBCUT DAILY [facility] Last Admin: 07/17/16 08:42 Dose: 40 mg Famotidine (Pepcid) 20 mg PO BID [facility] Last Admin: 07/17/16 20:41 Dose: 20 mg Hydralazine HCl (Apresoline) 20 mg IVPUSH Q4H PRN PRN Reason: Hypertension Last Admin: 07/15/16 19:43 Dose: 20 mg Hydromorphone HCl (Dilaudid) 0.25 mg IVPUSH Q2H PRN PRN Reason: Pain (severe 7-10) Lisinopril (Prinivil) 10 mg PO DAILY [facility] Last Admin: 07/17/16 08:41 Dose: 10 mg Lorazepam (Ativan) 2 mg IVPUSH Q4H PRN PRN Reason: Seizures Lorazepam (Ativan) 1 mg IVPUSH Q4H PRN; Protocol PRN Reason: Withdrawal Symptoms Last Admin: 07/15/16 16:13 Dose: 1 mg Lorazepam (Ativan) 0.5 mg PO TID PRN PRN Reason: Anxiety Last Admin: 07/16/16 22:16 Dose: 0.5 mg Magnesium Oxide (Magnesium Oxide) 400 mg PO BID [facility] Stop: 07/18/16 21:01 Last Admin: 07/17/16 20:41 Dose: 400 mg Magnesium Sulfate (Pharmacy To Dose - Magnesium Replacement) 1 dose .XX ASDIRECTED [facility] Metoprolol Tartrate (Lopressor) 5 mg IVPUSH Q4H PRN PRN Reason: Tachycardia Last Admin: 07/14/16 06:18 Dose: 5 mg Miscellaneous Information (Remove Patch) 0 ea TRDERM ONETIME ONE Stop: 07/22/16 12:01 Ondansetron HCl (Zofran) 4 mg IV Q6H PRN PRN Reason: Nausea/Vomiting Potassium Chloride (Pharmacy To Dose - Potassium Replacement) 1 dose .XX ASDIRECTED [facility] Quetiapine Fumarate (Seroquel) 50 mg PO BEDTIME [facility] Last Admin: 07/17/16 20:41 Dose: 50 mg Senna/Docusate Sodium (Senna Plus) 1 tab PO BID PRN PRN Reason: Constipation Sodium Chloride (Saline Flush) 10 ml FLUSH ASDIRECTED PRN PRN Reason: Keep Vein Open Last Admin: 07/15/16 19:45 Dose: 10 ml Temazepam (Restoril) 30 mg PO BEDTIME PRN PRN Reason: Sleep Last Admin: 07/13/16 21:11 Dose: 30 mg Thiamine HCl (Vitamin B-1) 100 mg PO DAILY [facility] Last Admin: 07/17/16 08:41 Dose: 100 mg Venlafaxine HCl (Effexor Xr) 75 mg PO DAILY [facility] Last Admin: 07/17/16 08:41 Dose: 75 mg Discontinued Medications Chlordiazepoxide HCl (Librium) 25 mg PO ONETIME ONE Stop: 07/13/16 19:00 Last Admin: 07/13/16 19:09 Dose: 25 mg Chlordiazepoxide HCl (Librium) 25 mg PO Q8H PRN PRN Reason: Withdrawal Symptoms Chlordiazepoxide HCl (Librium) 25 mg PO Q8H PRN PRN Reason: Withdrawal Symptoms Last Admin: 07/15/16 06:44 Dose: 25 mg Chlordiazepoxide HCl (Librium) 50 mg PO TID [facility] Last Admin: 07/16/16 14:15 Dose: 50 mg Chlordiazepoxide HCl (Librium) 25 mg PO TID [facility] Stop: 07/17/16 06:00 Last Admin: 07/16/16 20:17 Dose: 25 mg Clonidine HCl (Catapres-Tts 3) 0.3 mg TRDERM Q7D ONE Stop: 07/15/16 12:31 Last Admin: 07/15/16 12:34 Dose: 0.3 mg Diphenhydramine HCl (Benadryl) 50 mg IVPUSH BEDTIME PRN PRN Reason: Insomnia Famotidine (Pepcid) 20 mg PO Q12H [facility] Last Admin: 07/16/16 08:22 Dose: Not Given Fluoxetine HCl (Prozac) 10 mg PO DAILY [facility] Folic Acid (Folic Acid) 1 mg PO DAILY [facility] Stop: 07/16/16 09:01 Last Admin: 07/16/16 08:19 Dose: 1 mg Furosemide (Lasix) 20 mg PO ONETIME ONE Stop: 07/15/16 08:31 Last Admin: 07/15/16 09:01 Dose: 20 mg Sodium Chloride (Normal Saline) 1,000 mls @ 125 mls/hr IV ASDIRECTED [facility] Last Admin: 07/15/16 04:15 Dose: 125 mls/hr Thiamine HCl 200 mg/ Sodium (Chloride) 52 mls @ 100 mls/hr IV ONETIME ONE Stop: 07/13/16 20:30 Last Admin: 07/13/16 21:11 Dose: 100 mls/hr Magnesium Sulfate 2 gm/ Premix 50 mls @ 25 mls/hr IV ONETIME ONE Stop: 07/14/16 09:29 Last Admin: 07/14/16 07:41 Dose: 25 mls/hr Sodium Chloride (Normal Saline) 500 mls @ 999 mls/hr IV ASDIRECTED ONE Stop: 07/16/16 10:22 Last Admin: 07/16/16 10:09 Dose: Not Given Sodium Chloride (Normal Saline) 500 mls @ 999 mls/hr IV ASDIRECTED [facility] Stop: 07/16/16 10:38 Last Admin: 07/16/16 10:15 Dose: 999 mls/hr Lorazepam (Ativan) 1 mg IVPUSH ONETIME ONE Stop: 07/13/16 19:00 Last Admin: 07/13/16 19:09 Dose: 1 mg Multivitamins (Thera) 1 each PO ONETIME ONE Stop: 07/13/16 20:01 Last Admin: 07/13/16 21:12 Dose: 1 each Pantoprazole Sodium (Protonix Iv) 40 mg IV Q12H [facility] Last Admin: 07/14/16 08:05 Dose: 40 mg Quetiapine Fumarate (Seroquel) 25 mg PO BID [facility] Last Admin: 07/14/16 08:04 Dose: 25 mg Venlafaxine HCl (Effexor Xr) 37.5 mg PO DAILY [facility] Last Admin: 07/16/16 08:19 Dose: 37.5 mg - Exam General: Reports: alert, oriented, cooperative, no acute distress HEENT: Reports: Pupils equal, Pupils reactive, EOMI, Mucous membr. moist/pink Neck: Reports: supple, trachea midline, no JVD, no thyromegaly Lungs: Reports: Clear to auscultation, Normal respiratory effort Cardiovascular: Reports: Regular Rate, Regular Rhythm Abdomen: Reports: bowel sounds present, soft, no tenderness, no distension (Male) Exam: Deferred Rectal (Males) Exam: Deferred Back Exam: Reports: normal inspection, decreased range of motion Extremities: Reports: no edema, normal pulses, no tenderness/swelling, no clubbing, no cyanosis, no calf tenderness Skin: Reports: warm, dry, intact Neurological: Reports: no new focal deficit Psy/Mental Status: Reports: alert, normal affect, normal mood *Q Meaningful Use (DIS) - VTE *Q VTE Criteria *Q: - Stroke *Q Stroke Criteria *Q: - AMI *Q AMI Criteria *Q:
[2016-07-18] MEDS: Thiamine 100 MG Tab PO SCH (08:35)
[2016-07-18] MEDS: Venlafaxine 75 MG Cap.ER PO SCH (08:35)
[2016-07-18] MEDS: Famotidine 20 MG Tab PO SCH (08:35)
[2016-07-18] MEDS: Enoxaparin 40 MG/0.4 ML Syringe SUBCUT SCH (08:35)
[2016-07-18 08:36] VITALS: BP 113/82
[2016-07-18] MEDS: Magnesium Oxide 400 MG Tab PO SCH (08:36)
[2016-07-18] MEDS: Lisinopril 10 MG Tab PO SCH (08:36)
== END 2016-07-18 10:30 | disposition home or self-care (01) | DRG 775 ==
LOC: JD.ED 16:29 → JD.ICU 19:27 → JD.MS 07-16 09:53
PROVIDERS: ADMIT Internal Medicine; ATTEND Internal Medicine
DX: F10.229 Alcohol dependence with intoxication, unspecified (principal); F10.239 Alcohol dependence with withdrawal, unspecified; Y90.1 Blood alcohol level of 20-39 mg/100 ml; F12.90 Cannabis use, unspecified, uncomplicated; F41.9 Anxiety disorder, unspecified; F33.2 Major depressive disorder, recurrent severe without psychotic features; I10 Essential (primary) hypertension; Z79.899 Other long term (current) drug therapy
CPT/HCPCS: 36415; 80053; 80306; 81001; 83735; 84443; 85025; 85610; 96374; 97161-GP; 97165-GO; 99284; 99285-25; A9270-GY; C9113; G0480; J0360; J1650; J2060; J3411; J3475; J3490; J7030; J7040; J7050

== ENCOUNTER 2017-09-10 10:38 | Inpatient (IN) | payer BC, OTHER ==
--- NOTE | 2017-09-10 11:38 | EDM.PDOC ---
ED HPI GENERAL MEDICAL PROBLEM - General Chief Complaint: Respiratory Problem Stated Complaint: POSS. FLU- SENT BY [facility] Time Seen by Provider: 09/10/17 11:15 Source of Information: Reports: Patient, Family () History Limitations: Reports: No Limitations - History of Present Illness INITIAL COMMENTS - FREE TEXT/NARRATIVE: Sincere is a 62yo mildly ill appearing male presents ambulatory to ED today with 1 wk hx of cough, fever, wheezing, malaise, myalgias. He has been taking OTC cold medication without relief. No sick contacts that he is aware of. He has not been to work in a week which is very unusual for him according to his . He is fatigued, no appetite. Hx of HTN, anxiety/depression. Has not checked his b/p at home, is elevated today- has been taking OTC alkaseltzer at home. Denies chest pain but states does hurt when he coughs to his left chest. Onset: Gradual (1) Duration: Week(s): (1) Location: Reports: Chest Improves with: Reports: None Worsens with: Reports: Other (coughing) Associated Symptoms: Reports: Cough (dry and hacky), Fever/Chills, Headaches, Loss of Appetite, Malaise. Denies: Chest Pain, Nausea/Vomiting, Rash, Shortness of Breath Treatments [employer]: Reports: Other Medication(s) (OCT cold medication- garfield seltzer plus) - Related Data Allergies Allergy/AdvReac Type Severity Reaction Status Date / Time No Known Allergies Allergy Verified 12/20/13 13:52 Home Meds: Home Meds Multivitamin [Multivitamins] 1 each PO DAILY 12/20/13 [History] Lisinopril 10 mg PO DAILY 07/13/16 [History] QUEtiapine [SEROquel] 50 mg PO BEDTIME #30 tablet 07/17/16 [Rx] Venlafaxine [Effexor XR] 75 mg PO DAILY #30 cap.er 07/17/16 [Rx] Past Medical History - Past Health History Medical/Surgical History: Denies Medical/Surgical History Cardiovascular History: Reports: Hypertension Musculoskeletal History: Reports: Fracture, Neck Pain, Chronic Other Musculoskeletal History: right arm Psychiatric History: Reports: Addiction, Anxiety, Depression Dermatologic History: Reports: Melanoma Social & Family History - Family History Family Medical History: Noncontributory - Tobacco Use Smoking Status *Q: Former Smoker Used Tobacco, but Quit: Yes Month/Year Tobacco Last Used: 30 years - Caffeine Use Caffeine Use: Reports: None - Recreational Drug Use Recreational Drug Use: No ED ROS GENERAL - Review of Systems Review Of Systems: See Below Constitutional: Reports: Fever, Chills, Malaise, Weakness, Fatigue, Decreased Appetite HEENT: Reports: Rhinitis. Denies: Dental Pain, Ear Pain, Sinus Problem, Throat Pain Respiratory: Reports: Shortness of Breath, Wheezing, Cough Cardiovascular: Reports: Lightheadedness. Denies: Chest Pain, Dyspnea on Exertion, Edema GI/Abdominal: Reports: Nausea (mild). Denies: Diarrhea, Vomiting : Reports: No Symptoms Musculoskeletal: Reports: Other (generalized myalgias) Skin: Reports: No Symptoms Neurological: Reports: Headache Psychiatric: Reports: Other (hx of anxiety/depression- stable) ED EXAM, GENERAL - Physical Exam Exam: See Below Exam Limited By: No Limitations General Appearance: Alert, No Apparent Distress, Other (mildly ill appearing) Eye Exam: Bilateral Eye: EOMI, PERRL Ears: Normal External Exam, Normal Canal, Hearing Grossly Normal, Normal TMs Nose: Normal Inspection Throat/Mouth: Normal Inspection, Normal Lips, Normal Teeth, Normal Gums, Normal Oropharynx, Normal Voice Head: Atraumatic, Normocephalic Neck: Normal Inspection Respiratory/Chest: No Respiratory Distress, No Accessory Muscle Use, Decreased Breath Sounds, Wheezing Cardiovascular: Normal Peripheral Pulses, Regular Rate, Rhythm, No Edema, No Murmur, Tachycardia Peripheral Pulses: 2+: Radial (L), Radial (R) GI/Abdominal: Normal Bowel Sounds, Soft, Non-Tender (Male) Exam: Deferred Rectal (Males) Exam: Deferred Extremities: Normal Inspection, Pedal Edema Neurological: Alert, Oriented, CN II-XII Intact, Normal Cognition Psychiatric: Normal Affect, Normal Mood Skin Exam: Warm, Dry, Intact Course - Vital Signs Last Recorded V/S: Last Vital Signs Temp 99 F 09/10/17 10:52 Pulse 103 H 09/10/17 10:52 Resp 22 H 09/10/17 10:52 BP 180/105 H 09/10/17 12:08 Pulse Ox 96 09/10/17 11:41 - Orders/Labs/Meds Orders: Active Orders 24 hr Category Date Time Status Admission Status [Patient Status] [ADT] Routine ADT 09/10/17 14:24 Ordered CIWAA Assessment [RC] Q1H Care 09/10/17 14:15 Active RT Aerosol Therapy [RC] ASDIRECTED Care 09/10/17 11:41 Active Chest 2V [CR] Stat Exams 09/10/17 11:36 Taken DRUG SCREEN, URINE [URCHEM] Stat Lab 09/10/17 14:31 Ordered Sodium Chloride 0.9% [Normal Saline] 1,000 ml Med 09/10/17 14:30 Ordered IV ONETIME Medication Orders Sodium Chloride (Normal Saline) 1,000 mls @ 250 mls/hr IV ONETIME ONE Stop: 09/10/17 18:29 Labs: Laboratory Tests 09/10/17 09/10/17 09/10/17 Range/Units 11:49 11:49 11:49 WBC 9.42 H (4.23-9.07) K/mm3 RBC 5.01 (4.63-6.08) M/mm3 Hgb 15.2 (13.7-17.5) gm/L Hct 43.6 (40.1-51.0) % MCV 87.0 (79.0-92.2) fl MCH 30.3 (25.7-32.2) pg MCHC 34.9 (32.2-35.5) g/dl RDW Std Deviation 40.7 (35.1-43.9) fL Plt Count 304 (163-337) K/mm3 MPV 9.0 L (9.4-12.3) fl Neut % (Auto) 77.3 H (34.0-67.9) % Lymph % (Auto) 16.2 L (21.8-53.1) % [place] % (Auto) 5.9 (5.3-12.2) % Eos % (Auto) 0 L (0.8-7.0) Baso % (Auto) 0.2 (0.1-1.2) % Neut # (Auto) 7.27 H (1.78-5.38) K/mm3 Lymph # (Auto) 1.53 (1.32-3.57) K/mm3 [place] # (Auto) 0.56 (0.30-0.82) K/mm3 Eos # (Auto) 0.00 L (0.04-0.54) K/mm3 Baso # (Auto) 0.02 (0.01-0.08) K/mm3 Sodium 133 L (136-145) mEq/L Potassium 3.8 (3.5-5.1) mEq/L Chloride 95 L (98-107) mEq/L Carbon Dioxide 25 (21-32) mEq/L Anion Gap 16.8 H (5-15) BUN 10 (7-18) mg/dL Creatinine 0.9 (0.7-1.3) mg/dL Est Cr Clr Drug Dosing 100.21 mL/min Estimated GFR (MDRD) > 60 (>60) mL/min BUN/Creatinine Ratio 11.1 L (14-18) Glucose 114 (80-115) mg/dL Calcium 8.9 (8.5-10.1) mg/dL Total Bilirubin 0.3 (0.2-1.0) mg/dL AST 37 (15-37) U/L ALT 37 (16-63) U/L Alkaline Phosphatase 75 (46-116) U/L Troponin I < 0.017 (0.00-0.056) ng/mL C-Reactive Protein < 0.2 (<1.0) mg/dL Total Protein 7.7 (6.4-8.2) g/dl Albumin 3.7 (3.4-5.0) g/dl Globulin 4.0 gm/dL Albumin/Globulin Ratio 0.9 L (1-2) Meds: Medications Generic Name Dose Route Start Last Admin Trade Name Freq PRN Reason Stop Dose Admin Sodium Chloride 1,000 mls @ 250 mls/hr 09/10/17 14:30 Normal Saline IV 09/10/17 18:29 ONETIME ONE Discontinued Medications Generic Name Dose Route Start Last Admin Trade Name Freq PRN Reason Stop Dose Admin Azithromycin 500 mg 09/10/17 12:36 09/10/17 12:47 Zithromax PO 09/10/17 12:37 500 mg ONETIME ONE Administration Famotidine 20 mg 09/10/17 14:30 Pepcid IVPUSH 09/10/17 14:31 ONETIME ONE Levalbuterol HCl 1.25 mg 09/10/17 11:41 09/10/17 11:48 Xopenex NEB 09/10/17 11:42 1.25 mg ONETIME ONE Administration Lisinopril 10 mg 09/10/17 11:41 09/10/17 12:08 Prinivil PO 09/10/17 11:42 10 mg ONETIME ONE Administration Lorazepam 0.5 mg 09/10/17 12:34 09/10/17 12:45 Ativan IVPUSH 09/10/17 12:35 0.5 mg ONETIME ONE Administration Lorazepam 1 mg 09/10/17 14:15 Ativan IVPUSH 09/10/17 14:16 ONETIME ONE Ondansetron HCl 4 mg 09/10/17 12:55 09/10/17 13:02 Zofran IVPUSH 09/10/17 12:56 4 mg ONETIME ONE Administration Ondansetron HCl 4 mg 09/10/17 14:30 Zofran IVPUSH 09/10/17 14:31 ONETIME ONE Prednisone 40 mg 09/10/17 12:35 09/10/17 12:47 Prednisone PO 09/10/17 12:36 40 mg ONETIME ONE Administration Quetiapine Fumarate 50 mg 09/10/17 14:15 Seroquel PO 09/10/17 14:16 ONETIME ONE - Radiology Interpretation Free Text/Narrative:: 2 view CXR reviewed and without acute findings or concerns. - Re-Assessments/Exams Free Text/Narrative Re-Assessment/Exam: 09/10/17 12:37 Reviewed labs and xrays with patient and . He is anxious, did not take his seroquel last night- ordered IV ativan 0.5mg. Will treat as bronchitis with one dose of prednisone 40mg PO, zithromax PO now. He received xopenex neb which he feels may have helped his chest tightness. Will rx zithromax x 4 more days and recommend f/up with PCP mid next week for recheck. Free Text/Narrative Re-Assessment/Exam: 09/10/17 12:55 Into reassess patient who is very shaky and nauseous. He tells me for the first time today that he is an alcoholic. Last drink was 2 shots of abril this morning and that he usually doesn't drink during the day while at work. Ativan given IVP per nursing, will order zofran and reassess shortly. Free Text/Narrative Re-Assessment/Exam: 09/10/17 14:17 Addressed alcohol use with patient and . He does feel his use is a problem. He is initially unsure if he wants help but later states he does need and want help and feels he would be best served to detox in hospital setting which I am in agreement to. He continues to have elevated b/p, HR. He has rec'd 0.5mg of ativan with minimal response. Orders placed for 1mg IVP. He did not take his usual seroquel dose of 50mg last night as he forgot because he was feeling so bad. Seroquel 50mg ordered along with CIWAA assessment. Will place call to Hospitalist Dr. Mares to discuss potential for admission for alcohol withdrawl syndrome and acute bronchitis. Patient and in agreement. 09/10/17 14:[address] Mares, he is in agreement to admission. Will admit to ICU status for alcohol withdrawl syndrome and acute bronchitis. Nursing to complete CIWAA score. Will order IVF and UDS, pepcid and zofran for persistent nausea. He continues to have shakes/tremors and is very anxious and uncomfortable. To clarify drinks/day- drinks vodka daily, he will not quantify, states a quart a week but strongly suspect more. States he has drank a quart over this week that he has been ill and again, 2 shots of abril this morning. 09/10/17 14:36 Departure - Departure Time of Disposition: 14:37 Disposition: Admitted As Inpatient 67 Condition: Good Clinical Impression: Alcohol dependence with withdrawal, uncomplicated, Alcohol abuse, Anxiety and depression, Chronic alcohol abuse Acute bronchitis Qualifiers: Bronchitis organism: unspecified organism Qualified Code(s): J20.9 - Acute bronchitis, unspecified - Discharge Information Instructions: Acute Bronchitis, Adult, [id number], Upper Respiratory Infection, Adult, [id number] Referrals: Kayley Padgett NP [Primary Care Provider] - Forms: ED Department Discharge - My Orders Last 24 Hours: My Active Orders 09/10/17 11:36 Chest 2V [CR] Stat 09/10/17 11:41 RT Aerosol Therapy [RC] ASDIRECTED 09/10/17 14:15 CIWAA Assessment [RC] Q1H 09/10/17 14:24 Admission Status [Patient Status] [ADT] Routine 09/10/17 14:30 Sodium Chloride 0.9% [Normal Saline] 1,000 ml IV ONETIME 09/10/17 14:31 DRUG SCREEN, URINE [URCHEM] Stat - Assessment/Plan Last 24 Hours: My Active Orders 09/10/17 11:36 Chest 2V [CR] Stat 09/10/17 11:41 RT Aerosol Therapy [RC] ASDIRECTED 09/10/17 14:15 CIWAA Assessment [RC] Q1H 09/10/17 14:24 Admission Status [Patient Status] [ADT] Routine 09/10/17 14:30 Sodium Chloride 0.9% [Normal Saline] 1,000 ml IV ONETIME 09/10/17 14:31 DRUG SCREEN, URINE [URCHEM] Stat
[2017-09-10] MEDS ORDERED: Levalbuterol HCl 1.25 MG/3 ML Neb NEB ONE (11:41)
[2017-09-10] MEDS ORDERED: Lisinopril 10 MG Tab PO ONE (11:41)
[2017-09-10] MEDS ORDERED: LORazepam 2 MG/ML SDV IVPUSH ONE ×2 (12:34→14:15)
[2017-09-10] MEDS ORDERED: predniSONE 20 MG Tab PO ONE (12:35)
[2017-09-10] MEDS ORDERED: Azithromycin 250 MG Tab PO ONE (12:36)
[2017-09-10] MEDS ORDERED: Ondansetron 4 MG/2 ML SDV IVPUSH ONE ×2 (12:55→14:30)
[2017-09-10] MEDS ORDERED: QUEtiapine 25 MG Tab PO ONE (14:15)
[2017-09-10] MEDS ORDERED: Sodium Chloride 0.9% 1,000 ML IV ONE (14:30)
[2017-09-10] MEDS ORDERED: Famotidine 20 MG/2 ML SDV IVPUSH ONE (14:30)
[2017-09-10] MEDS ORDERED: LORazepam 2 MG/ML SDV ONE (14:45)
[2017-09-10] MEDS ORDERED: chlordiazePOXIDE 25 MG Cap PO ONE (15:10)
--- NOTE | 2017-09-10 17:31 | PCM.HP ---
H&P History of Present Illness - General Date of Service: 09/10/17 Admit Problem/Dx: Admission Diagnosis/Problem Admission Diagnosis/Problem Alcohol withdrawal syndrome Source of Information: Patient, Old Records, Provider, RN Notes Reviewed History Limitations: Reports: Intoxication - History of Present Illness Initial Comments - Free Text/Narative: This is a 62 yo white male with past medical hx/o Chronic ETOH Abuse, Anxiety, Depression, and HTN who presents to ED with flu-like symptoms that started about a week ago. His constellation of symptoms include non-productive cough, subjective fever, wheezing, generalized muscle aches and pain, fatigue and decreased appetite. He denies any recent sick contact. He took OTC cold remedy as well as alkaseltzer but w/o much relief. His initial work up in ED shows a CBC remarkable for WBC of 9.42, MPV of 9, neutrophils of 77.3% and lymphocytes of 16.2%. His chemistry is remarkable for sodium of 133, chloride of 95, anion gap of 16.8. His initial troponin and CRP levels are within normal limits. His UDS is positive for tricyclic. He is negative for Mycoplasma pneumonia Ag test. His chest x-ray shows no acute abnormal findings. While patient is in the emergency department he exhibited signs of withdrawals. He was nauseous and shaky. Upon further investigation by the ED provider, Patient finally admitted he started back drinking alcohol. His most recent drink was this morning with 2 shots of abril. Patient received initial treatment in the emergency department along with CIWA Protocol before he was sent to the unit for further treatment. He is being admitted for alcohol withdrawal Symptoms and acute bronchitis. He is full code. - Related Data Allergies/Adverse Reactions: Allergies Allergy/AdvReac Type Severity Reaction Status Date / Time No Known Allergies Allergy Verified 09/10/17 16:30 Home Medications: Home Meds Multivitamin [Multivitamins] 1 each PO DAILY 12/20/13 [History] Lisinopril 10 mg PO DAILY 07/13/16 [History] QUEtiapine [SEROquel] 50 mg PO BEDTIME #30 tablet 07/17/16 [Rx] Venlafaxine [Effexor XR] 75 mg PO DAILY #30 cap.er 07/17/16 [Rx] Past Medical History - Past Health History Medical/Surgical History: Denies Medical/Surgical History Cardiovascular History: Reports: Hypertension Musculoskeletal History: Reports: Fracture, Neck Pain, Chronic Other Musculoskeletal History: right arm Psychiatric History: Reports: Addiction, Anxiety, Depression Dermatologic History: Reports: Melanoma Social & Family History - Family History Family Medical History: Noncontributory - Tobacco Use Smoking Status *Q: Never Smoker Used Tobacco, but Quit: Yes Month/Year Tobacco Last Used: 30 years - Caffeine Use Caffeine Use: Reports: None - Alcohol Use Days Per Week of Alcohol Use: 7 Number of Drinks Per Day: 3 Total Drinks Per Week: 21 Date of Last Drink: 09/10/17 Time of Last Drink: 08:00 - Recreational Drug Use Recreational Drug Use: No H&P Review of Systems - Review of Systems: Review Of Systems: See Below Exam - Exam Exam: See Below - Vital Signs Vital Signs: Last Vital Signs Temp 37.2 C 09/10/17 10:52 Pulse 103 H 09/10/17 10:52 Resp 22 H 09/10/17 10:52 BP 180/105 H 09/10/17 12:08 Pulse Ox 96 09/10/17 11:41 Weight: 190 kg - Exam General: Alert, Cooperative HEENT: Conjunctiva Clear, EACs Clear, EOMI, Hearing Intact, Mucosa Moist & [place] , Nares Patent, Normal Nasal Septum, Posterior Pharynx Clear, Pupils Equal, Pupils Reactive Neck: Supple, Trachea Midline Lungs: Clear to Auscultation, Normal Respiratory Effort Cardiovascular: Regular Rhythm, Tachycardia GI/Abdominal Exam: Normal Bowel Sounds, Soft, Non-Tender, No Organomegaly, No Distention, No Abnormal Bruit, No Mass (Male) Exam: Deferred Rectal (Males) Exam: Deferred Back Exam: Normal Inspection, Decreased Range of Motion Extremities: Normal Inspection, Normal Range of Motion, Non-Tender, No Pedal Edema, Normal Capillary Refill Peripheral Pulses: 3+: Posterior Tibial (L), Posterior Tibial (R), Dorsalis Pedis (L), Dorsalis Pedis (R) Skin: Warm, Dry, Intact. No: Rash, Ecchymosis Neuro Extensive - Mental Status: Alert, Normal Mood/Affect, Normal Cognition, Memory Intact, Slow Response to Commands Neuro Extensive - Motor, Sensory, Reflexes: CN II-XII Intact, Abnormal Gait Psychiatric: Withdrawal Symptoms. No: Alert, Normal Affect, Normal Mood, Agitated, Suicidal Ideation, Homicidal Ideation, Hallucinations - Patient Data Lab Results Last 24 hrs: Laboratory Results - last 24 hr 09/10/17 09/10/17 09/10/17 Range/Units 11:49 11:49 11:49 WBC 9.42 H (4.23-9.07) K/mm3 RBC 5.01 (4.63-6.08) M/mm3 Hgb 15.2 (13.7-17.5) gm/L Hct 43.6 (40.1-51.0) % MCV 87.0 (79.0-92.2) fl MCH 30.3 (25.7-32.2) pg MCHC 34.9 (32.2-35.5) g/dl RDW Std Deviation 40.7 (35.1-43.9) fL Plt Count 304 (163-337) K/mm3 MPV 9.0 L (9.4-12.3) fl Neut % (Auto) 77.3 H (34.0-67.9) % Lymph % (Auto) 16.2 L (21.8-53.1) % [place] % (Auto) 5.9 (5.3-12.2) % Eos % (Auto) 0 L (0.8-7.0) Baso % (Auto) 0.2 (0.1-1.2) % Neut # (Auto) 7.27 H (1.78-5.38) K/mm3 Lymph # (Auto) 1.53 (1.32-3.57) K/mm3 [place] # (Auto) 0.56 (0.30-0.82) K/mm3 Eos # (Auto) 0.00 L (0.04-0.54) K/mm3 Baso # (Auto) 0.02 (0.01-0.08) K/mm3 Sodium 133 L (136-145) mEq/L Potassium 3.8 (3.5-5.1) mEq/L Chloride 95 L (98-107) mEq/L Carbon Dioxide 25 (21-32) mEq/L Anion Gap 16.8 H (5-15) BUN 10 (7-18) mg/dL Creatinine 0.9 (0.7-1.3) mg/dL Est Cr Clr Drug Dosing 100.21 mL/min Estimated GFR (MDRD) > 60 (>60) mL/min BUN/Creatinine Ratio 11.1 L (14-18) Glucose 114 (80-115) mg/dL Calcium 8.9 (8.5-10.1) mg/dL Total Bilirubin 0.3 (0.2-1.0) mg/dL AST 37 (15-37) U/L ALT 37 (16-63) U/L Alkaline Phosphatase 75 (46-116) U/L Troponin I < 0.017 (0.00-0.056) ng/mL C-Reactive Protein < 0.2 (<1.0) mg/dL Total Protein 7.7 (6.4-8.2) g/dl Albumin 3.7 (3.4-5.0) g/dl Globulin 4.0 gm/dL Albumin/Globulin Ratio 0.9 L (1-2) Result Diagrams: 09/11/17 05:14 09/11/17 05:14 Problem List Initiated/Reviewed/Updated: Yes Orders Last 24hrs: Active Orders 24 hr Category Date Time Status Admission Status [Patient Status] [ADT] Routine ADT 09/10/17 14:24 Active CIWAA Assessment [RC] Q1H Care 09/10/17 14:15 Active RT Aerosol Therapy [RC] ASDIRECTED Care 09/10/17 11:41 Active Chest 2V [CR] Stat Exams 09/10/17 11:36 Taken DRUG SCREEN, URINE [URCHEM] Stat Lab 09/10/17 14:31 Ordered Sodium Chloride 0.9% [Normal Saline] 1,000 ml Med 09/10/17 14:30 Active IV ONETIME Medication Orders Sodium Chloride (Normal Saline) 1,000 mls @ 250 mls/hr IV ONETIME ONE Stop: 09/10/17 18:29 Last Admin: 09/10/17 14:39 Dose: 250 mls/hr Assessment/Plan Comment:: Assessment: Acute: ETOH Withdrawal Symptoms - CIWA protocol: CIWA score is considerably elevated - Ativan/Seroquel/Clonidine/Topamax - Hydralazine and IVP BB for HR/BP control - Ativan for Abortive Seizure and Withdrawal Symptoms - SA consult; he is willing to get better ETOH Abuse - Acute on Chronic - He relapsed-> would not give me an answer for the trigger this time - CIWA protocol Bronchitis - No Hx/o Pulmonary Disease and He is non active-smoker - CXR shows no acute abnormal findings - Decongestant/Expectorant, IV Azithromycin 500 mg Daily, IS/FV as directed and RT care - He is Mycoplasma Pneumonia Ag negative - Sputum Cx and Strep Pneumonia Ag test Malignant HTN - He has not been taking his BP meds - Above is worsened by ETOH Withdrawal Symptoms - Resume Home Meds - D/c IVF once done - Clonodine and PRN IV Hydralazine Q4H for BP > 140/90 mmHg Chronic: Anxiety Depression Plan: Admit to ICU Resume Home Meds MVI, Folic Acid and Thiamine CIWA protocol Ativan for Abortive Seizure and Withdrawal Symptoms PRN meds for Withdrawal Symptoms Aspiration/Seizure Precautions SW/CM d/c planning SA consult Code Status: 1
[2017-09-10] MEDS ORDERED: LORazepam 2 MG/ML SDV IVPUSH PRN (17:38)
[2017-09-10] MEDS ORDERED: Metoprolol Succinate 50 MG Tab.ER PO ONE (17:39)
[2017-09-10] MEDS ORDERED: Metoprolol Tartrate 5 MG/5 ML SDV IVPUSH PRN (17:39)
[2017-09-10] MEDS ORDERED: Albuterol/Ipratropium 3.0-0.5 MG/3 ML Neb Soln NEB PRN (17:41)
[2017-09-10] MEDS ORDERED: HYDROmorphone 0.5 MG/0.5 ML SYRINGE IVPUSH PRN (17:41)
[2017-09-10] MEDS ORDERED: Ondansetron 4 MG/2 ML SDV IV PRN (17:41)
[2017-09-10] MEDS ORDERED: oxyCODONE 5 MG Tab PO PRN (17:41)
[2017-09-10] MEDS ORDERED: Docusate Sodium 100 MG Cap PO PRN (17:41)
[2017-09-10] MEDS ORDERED: Acetaminophen 325 MG Tab PO PRN (17:41)
[2017-09-10] MEDS ORDERED: Promethazine 12.5 MG in Sodium Chloride 0.9% 50 ML IV PRN (17:41)
[2017-09-10] MEDS ORDERED: Bisacodyl 5 MG Tab PO PRN (17:41)
[2017-09-10] MEDS ORDERED: Nicotine 21 MG/24 Hr Patch TRDERM PRN (17:43)
[2017-09-10] MEDS ORDERED: cloNIDine 0.1 MG Tab PO PRN (17:43)
[2017-09-10] MEDS ORDERED: Haloperidol Lactate 5 MG/ML SDV IM PRN (17:43)
[2017-09-10] MEDS ORDERED: guaiFENesin/Dextromethorphan 100-10 MG/5 ML Soln 5 ML Cup PO PRN (17:48)
[2017-09-10] MEDS: LORazepam 2 MG/ML SDV IVPUSH PRN (20:26)
[2017-09-10] MEDS: Topiramate 25 MG Tab PO SCH (21:55)
[2017-09-10] MEDS: QUEtiapine 25 MG Tab PO SCH (21:55)
[2017-09-10] MEDS ORDERED: cloNIDine 0.3 MG/Day Transdermal Patch TRDERM SCH (22:00)
[2017-09-11] MEDS: hydrALAZINE 20 MG/ML SDV IVPUSH PRN ×2 (00:45→16:09)
[2017-09-11] MEDS: LORazepam 2 MG/ML SDV IVPUSH PRN ×5 (00:49→21:49)
[2017-09-11] MEDS: Metoprolol Tartrate 5 MG/5 ML SDV IVPUSH PRN ×2 (02:43→09:29)
--- NOTE | 2017-09-11 07:48 | CR ---
Chest: Two views of the chest were obtained. Comparison: No prior chest x-ray. Diaphragms are slightly flattened on the lateral view compatible with emphysematous change. Heart size and mediastinum are normal. Lungs are clear. Old rib deformity is seen within the upper right chest compatible with old healed fracture. Slight degenerative change is scattered within the spine. Impression: 1. Findings as described above. Nothing acute is appreciated on two-view chest x-ray. Diagnostic code #2
[2017-09-11] MEDS ORDERED: Magnesium Sulfate/Water 2 GM in Premix Bag 1 BAG IV ONE (08:00)
[2017-09-11] MEDS: Multivitamins,Therapeutic Tab PO SCH ×2 (08:01→08:09)
[2017-09-11] MEDS: Famotidine 20 MG Tab PO SCH ×2 (08:01→21:47)
[2017-09-11] MEDS: Topiramate 25 MG Tab PO SCH ×2 (08:05→21:47)
[2017-09-11] MEDS: QUEtiapine 25 MG Tab PO SCH ×2 (08:05→21:47)
[2017-09-11] MEDS: Venlafaxine 75 MG Cap.ER PO SCH (08:05)
[2017-09-11] MEDS: Folic Acid 1 MG Tab PO SCH (08:05)
[2017-09-11] MEDS: Thiamine 100 MG Tab PO SCH (08:08)
[2017-09-11] MEDS ORDERED: Azithromycin 500 MG AdvVial IV SCH (09:00)
[2017-09-11] MEDS ORDERED: Lisinopril 10 MG Tab PO SCH (09:00)
[2017-09-11] MEDS ORDERED: Azithromycin 500 MG in Sodium Chloride 0.9% 250 ML IV SCH (12:00)
--- NOTE | 2017-09-11 13:13 | PCM.PN ---
- General Info Date of Service: 09/11/17 Admission Dx/Problem (Free Text): Admission Diagnosis/Problem Admission Diagnosis/Problem Alcohol withdrawal syndrome Subjective Update: In to see Sincere. He is laying in bed. Overall he is doing well. He is a bit anxious and states his hands have been "shaky", but has no other complaints. No coughing. No N/V/D, no F/C. Ambulating. Urinating. No other concerns from nursing. Functional Status: Reports: Pain Controlled, Tolerating Diet, Ambulating, Urinating - Review of Systems General: Reports: No Symptoms. Denies: Fever, Chills HEENT: Reports: No Symptoms Pulmonary: Reports: No Symptoms Cardiovascular: Reports: No Symptoms. Denies: Chest Pain, Dyspnea on Exertion Gastrointestinal: Reports: No Symptoms. Denies: Abdominal Pain, Diarrhea, Nausea, Vomiting Genitourinary: Reports: No Symptoms. Denies: Dysuria, Frequency, Burning, Pain Musculoskeletal: Reports: No Symptoms Skin: Reports: No Symptoms Neurological: Reports: Tremors (mild, in hands). Denies: Numbness, Tingling Psychiatric: Reports: Anxiety - Patient Data Vitals - Most Recent: Last Vital Signs Temp 97.3 F 09/11/17 11:24 Pulse 124 H 09/11/17 09:29 Resp 18 09/11/17 11:24 BP 133/95 H 09/11/17 11:24 Pulse Ox 96 09/11/17 07:56 Weight - Most Recent: 418 lb 14.052 oz I&O - Last 24 Hours: Intake & Output 09/10/17 09/11/17 09/11/17 22:59 06:59 14:59 Intake Total 500 240 Output Total 1700 1750 Balance -1700 -1250 240 Lab Results Last 24 Hours: Laboratory Results - last 24 hr 09/10/17 09/10/17 09/11/17 Range/Units 18:06 18:10 05:14 WBC 7.36 (4.23-9.07) K/mm3 RBC 5.03 (4.63-6.08) M/mm3 Hgb 15.4 (13.7-17.5) gm/L Hct 44.0 (40.1-51.0) % MCV 87.5 (79.0-92.2) fl MCH 30.6 (25.7-32.2) pg MCHC 35.0 (32.2-35.5) g/dl RDW Std Deviation 42.5 (35.1-43.9) fL Plt Count 285 (163-337) K/mm3 MPV 9.5 (9.4-12.3) fl Neut % (Auto) 70.6 H (34.0-67.9) % Lymph % (Auto) 17.8 L (21.8-53.1) % [place] % (Auto) 11.4 (5.3-12.2) % Eos % (Auto) 0 L (0.8-7.0) Baso % (Auto) 0.1 (0.1-1.2) % Neut # (Auto) 5.19 (1.78-5.38) K/mm3 Lymph # (Auto) 1.31 L (1.32-3.57) K/mm3 [place] # (Auto) 0.84 H (0.30-0.82) K/mm3 Eos # (Auto) 0.00 L (0.04-0.54) K/mm3 Baso # (Auto) 0.01 (0.01-0.08) K/mm3 Sodium (136-145) mEq/L Potassium (3.5-5.1) mEq/L Chloride (98-107) mEq/L Carbon Dioxide (21-32) mEq/L Anion Gap (5-15) BUN (7-18) mg/dL Creatinine (0.7-1.3) mg/dL Est Cr Clr Drug Dosing mL/min Estimated GFR (MDRD) (>60) mL/min BUN/Creatinine Ratio (14-18) Glucose (80-115) mg/dL Calcium (8.5-10.1) mg/dL Magnesium (1.8-2.4) mg/dl C-Reactive Protein < 0.2 (<1.0) mg/dL Urine Opiates Screen Negative (NEGATIVE) Ur Buprenorphine Scrn Negative (NEGATIVE) Ur Oxycodone Screen Negative (NEGATIVE) Urine Methadone Screen Negative (NEGATIVE) Ur Propoxyphene Screen Negative (NEGATIVE) Ur Barbiturates Screen Negative (NEGATIVE) Ur Tricyclics Screen Presumptive positive H (NEGATIVE) Ur Phencyclidine Scrn Negative (NEGATIVE) Ur Amphetamine Screen Negative (NEGATIVE) U Methamphetamines Scrn Negative (NEGATIVE) U Benzodiazepines Scrn Negative (NEGATIVE) U Cocaine Metab Screen Negative (NEGATIVE) U Marijuana (THC) Screen Negative (NEGATIVE) Mycoplasma pneumon IgM Negative (NEGATIVE) 09/11/17 Range/Units 05:14 WBC (4.23-9.07) K/mm3 RBC (4.63-6.08) M/mm3 Hgb (13.7-17.5) gm/L Hct (40.1-51.0) % MCV (79.0-92.2) fl MCH (25.7-32.2) pg MCHC (32.2-35.5) g/dl RDW Std Deviation (35.1-43.9) fL Plt Count (163-337) K/mm3 MPV (9.4-12.3) fl Neut % (Auto) (34.0-67.9) % Lymph % (Auto) (21.8-53.1) % [place] % (Auto) (5.3-12.2) % Eos % (Auto) (0.8-7.0) Baso % (Auto) (0.1-1.2) % Neut # (Auto) (1.78-5.38) K/mm3 Lymph # (Auto) (1.32-3.57) K/mm3 [place] # (Auto) (0.30-0.82) K/mm3 Eos # (Auto) (0.04-0.54) K/mm3 Baso # (Auto) (0.01-0.08) K/mm3 Sodium 141 (136-145) mEq/L Potassium 3.6 (3.5-5.1) mEq/L Chloride 105 (98-107) mEq/L Carbon Dioxide 25 (21-32) mEq/L Anion Gap 14.6 (5-15) BUN 11 (7-18) mg/dL Creatinine 0.9 (0.7-1.3) mg/dL Est Cr Clr Drug Dosing 100.21 mL/min Estimated GFR (MDRD) > 60 (>60) mL/min BUN/Creatinine Ratio 12.2 L (14-18) Glucose 119 H (80-115) mg/dL Calcium 9.2 (8.5-10.1) mg/dL Magnesium 1.6 L (1.8-2.4) mg/dl C-Reactive Protein < 0.2 (<1.0) mg/dL Urine Opiates Screen (NEGATIVE) Ur Buprenorphine Scrn (NEGATIVE) Ur Oxycodone Screen (NEGATIVE) Urine Methadone Screen (NEGATIVE) Ur Propoxyphene Screen (NEGATIVE) Ur Barbiturates Screen (NEGATIVE) Ur Tricyclics Screen (NEGATIVE) Ur Phencyclidine Scrn (NEGATIVE) Ur Amphetamine Screen (NEGATIVE) U Methamphetamines Scrn (NEGATIVE) U Benzodiazepines Scrn (NEGATIVE) U Cocaine Metab Screen (NEGATIVE) U Marijuana (THC) Screen (NEGATIVE) Mycoplasma pneumon IgM (NEGATIVE) Med Orders - Current: Current Medications Acetaminophen (Tylenol) 650 mg PO Q4H PRN PRN Reason: Pain (Mild 1-3)/fever Albuterol/Ipratropium (Duoneb 3.0-0.5 Mg/3 Ml) 3 ml NEB Q4H PRN PRN Reason: Shortness Of Breath/wheezing Bisacodyl (Dulcolax) 5 mg PO DAILY PRN PRN Reason: Constipation Clonidine HCl (Catapres-Tts 3) 0.3 mg TRDERM Q7D [facility] Last Admin: 09/10/17 22:15 Dose: 0.3 mg Docusate Sodium (Colace) 100 mg PO BID PRN PRN Reason: Constipation Famotidine (Pepcid) 20 mg PO Q12H [facility] Last Admin: 09/11/17 08:01 Dose: 20 mg Folic Acid (Folic Acid) 1 mg PO DAILY [facility] Stop: 09/13/17 09:01 Last Admin: 09/11/17 08:05 Dose: 1 mg Guaifenesin/Phenylephrine HCl (Robitussin Dm) 10 ml PO Q4H PRN PRN Reason: Cough Haloperidol Lactate (Haldol) 2 mg IM Q4H PRN PRN Reason: Agitation Hydralazine HCl (Apresoline) 20 mg IVPUSH Q4H PRN PRN Reason: Hypertension Last Admin: 09/11/17 00:45 Dose: 20 mg Hydromorphone HCl (Dilaudid) 0.5 mg IVPUSH Q2H PRN PRN Reason: Pain (severe 7-10) Promethazine HCl 12.5 mg/ (Sodium Chloride) 50.5 mls @ 100 mls/hr IV Q6H PRN PRN Reason: Nausea/Vomiting Azithromycin 500 mg/ Sodium (Chloride) 250 mls @ 125 mls/hr IV Q24H [facility] Last Admin: 09/11/17 12:15 Dose: 125 mls/hr Lisinopril (Prinivil) 10 mg PO DAILY [facility] Last Admin: 09/11/17 08:03 Dose: 10 mg Lorazepam (Ativan) 2 mg IVPUSH Q4H PRN PRN Reason: Seizures Lorazepam (Ativan) 1 - 3 mg IVPUSH Q4H PRN; Protocol PRN Reason: Withdrawal Symptoms Last Admin: 09/11/17 12:49 Dose: 1 mg Magnesium Sulfate (Pharmacy To Dose - Magnesium Replacement) 0 dose .XX ASDIRECTED PRN PRN Reason: RX TO WATCH MAG LEVELS Metoprolol Tartrate (Lopressor) 5 mg IVPUSH Q4H PRN PRN Reason: Tachycardia Last Admin: 09/11/17 09:29 Dose: 5 mg Miscellaneous Information (Remove Patch) 1 ea TRDERM DAILY PRN PRN Reason: IF USED Miscellaneous Information (Remove Patch) 1 ea TRDERM Q7D [facility] Last Admin: 09/10/17 22:11 Dose: Not Given Multivitamins (Thera) 1 each PO DAILY [facility] Last Admin: 09/11/17 08:01 Dose: 1 each Multivitamins (Thera) 1 each PO DAILY [facility] Stop: 09/14/17 09:01 Last Admin: 09/11/17 08:09 Dose: 1 each Nicotine (Habitrol) 21 mg TRDERM DAILY PRN PRN Reason: Nicotine Dependence Ondansetron HCl (Zofran) 4 mg IV Q6H PRN PRN Reason: Nausea/Vomiting Oxycodone HCl (Oxycodone) 5 mg PO Q4H PRN PRN Reason: Pain (moderate 4-6) Potassium Chloride (Pharmacy To Dose - Potassium Replacement) 0 dose .XX ASDIRECTED PRN PRN Reason: RX TO WATCH Quetiapine Fumarate (Seroquel) 50 mg PO BEDTIME [facility] Last Admin: 09/10/17 21:55 Dose: 50 mg Quetiapine Fumarate (Seroquel) 25 mg PO DAILY [facility] Stop: 09/12/17 09:01 Last Admin: 09/11/17 08:05 Dose: 25 mg Senna/Docusate Sodium (Senna Plus) 1 tab PO BID PRN PRN Reason: Constipation Thiamine HCl (Vitamin B-1) 100 mg PO DAILY [facility] Last Admin: 09/11/17 08:08 Dose: 100 mg Topiramate (Topamax) 25 mg PO BID [facility] Last Admin: 09/11/17 08:05 Dose: 25 mg Venlafaxine HCl (Effexor Xr) 75 mg PO DAILY [facility] Last Admin: 09/11/17 08:05 Dose: 75 mg Discontinued Medications Azithromycin (Zithromax) 500 mg PO ONETIME ONE Stop: 09/10/17 12:37 Last Admin: 09/10/17 12:47 Dose: 500 mg Chlordiazepoxide HCl (Librium) 50 mg PO ONETIME ONE Stop: 09/10/17 15:11 Last Admin: 09/10/17 15:43 Dose: 50 mg Clonidine HCl (Catapres) 0.1 mg PO Q4H PRN PRN Reason: Agitation Famotidine (Pepcid) 20 mg IVPUSH ONETIME ONE Stop: 09/10/17 14:31 Last Admin: 09/10/17 14:41 Dose: 20 mg Sodium Chloride (Normal Saline) 1,000 mls @ 250 mls/hr IV ONETIME ONE Stop: 09/10/17 18:29 Last Admin: 09/10/17 14:39 Dose: 250 mls/hr Thiamine HCl 200 mg/ Sodium (Chloride) 52 mls @ 100 mls/hr IV ONETIME ONE Stop: 09/10/17 18:13 Last Admin: 09/10/17 18:55 Dose: 100 mls/hr Magnesium Sulfate 2 gm/ Premix 50 mls @ 25 mls/hr IV ONETIME ONE Stop: 09/11/17 09:59 Last Admin: 09/11/17 07:50 Dose: 25 mls/hr Levalbuterol HCl (Xopenex) 1.25 mg NEB ONETIME ONE Stop: 09/10/17 11:42 Last Admin: 09/10/17 11:48 Dose: 1.25 mg Lisinopril (Prinivil) 10 mg PO ONETIME ONE Stop: 09/10/17 11:42 Last Admin: 09/10/17 12:08 Dose: 10 mg Lorazepam (Ativan) 0.5 mg IVPUSH ONETIME ONE Stop: 09/10/17 12:35 Last Admin: 09/10/17 12:45 Dose: 0.5 mg Lorazepam (Ativan) 1 mg IVPUSH ONETIME ONE Stop: 09/10/17 14:16 Last Admin: 09/10/17 14:47 Dose: 1 mg Lorazepam (Ativan) Confirm Administered Dose 2 mg .ROUTE .STK-MED ONE Stop: 09/10/17 14:46 Last Admin: 09/10/17 15:25 Dose: Not Given Metoprolol Succinate (Toprol Xl) 50 mg PO ONETIME ONE Stop: 09/10/17 17:40 Metoprolol Tartrate (Lopressor) 5 mg IVPUSH Q4H PRN PRN Reason: Tachycardia Last Admin: 09/10/17 18:04 Dose: 5 mg Ondansetron HCl (Zofran) 4 mg IVPUSH ONETIME ONE Stop: 09/10/17 12:56 Last Admin: 09/10/17 13:02 Dose: 4 mg Ondansetron HCl (Zofran) 4 mg IVPUSH ONETIME ONE Stop: 09/10/17 14:31 Last Admin: 09/10/17 14:43 Dose: 4 mg Prednisone (Prednisone) 40 mg PO ONETIME ONE Stop: 09/10/17 12:36 Last Admin: 09/10/17 12:47 Dose: 40 mg Quetiapine Fumarate (Seroquel) 50 mg PO ONETIME ONE Stop: 09/10/17 14:16 Last Admin: 09/10/17 14:40 Dose: 50 mg - Exam Quality Assessment: DVT Prophylaxis General: Alert, Oriented, Cooperative HEENT: Pupils Equal, Pupils Reactive, EOMI, Mucous Membr. Moist/[place] Neck: Supple Lungs: Clear to Auscultation, Normal Respiratory Effort Cardiovascular: Regular Rate, Tachycardia GI/Abdominal Exam: Normal Bowel Sounds, Soft, Non-Tender, No Organomegaly, No Distention, No Abnormal Bruit, No Mass, Pelvis Stable (Male) Exam: Deferred Back Exam: Normal Inspection, Full Range of Motion Extremities: Normal Inspection, Normal Range of Motion, Non-Tender, No Pedal Edema, Normal Capillary Refill Peripheral Pulses: 3+: Posterior Tibial (L), Posterior Tibial (R), Dorsalis Pedis (L), Dorsalis Pedis (R) Skin: Warm, Dry, Intact Neurological: No New Focal Deficit, Cranial Nerves Intact (grossly), Other ( mild tremors of both hands) Psy/Mental Status: Alert, Anxious, Withdrawal Symptoms - Problem List & Annotations (1) Alcohol dependence with withdrawal, uncomplicated SNOMED Code(s): 49640654, 24953055 Code(s): F10.230 - ALCOHOL DEPENDENCE WITH WITHDRAWAL, UNCOMPLICATED Status : Acute Priority: High Current Visit: Yes (2) Anxiety and depression SNOMED Code(s): 52795293 Code(s): F41.9 - ANXIETY DISORDER, UNSPECIFIED; F32.9 - MAJOR DEPRESSIVE DISORDER, SINGLE EPISODE, UNSPECIFIED Status: Chronic Priority: Medium Current Visit: Yes (3) Chronic alcohol abuse SNOMED Code(s): 529438753 Code(s): F10.10 - ALCOHOL ABUSE, UNCOMPLICATED Status: Chronic Priority: High Current Visit: Yes - Problem List Review Problem List Initiated/Reviewed/Updated: Yes - Plan Plan:: Assessment: Acute: ETOH Withdrawal Symptoms - CIWA protocol: CIWA score is considerably elevated--> improving - Ativan/Seroquel/Clonidine/Topamax - Hydralazine and IVP BB for HR/BP control - Ativan for Abortive Seizure and Withdrawal Symptoms - SA consult; he is willing to get better ETOH Abuse - Acute on Chronic - He relapsed-> would not give me an answer for the trigger this time - CIWA protocol Resolved: Bronchitis - No Hx/o Pulmonary Disease and He is non active-smoker - CXR shows no acute abnormal findings - No cough, no sputum to culture, afebrile - Decongestant/Expectorant, IS/FV as directed and RT care - IV Azithromycin 500 mg Daily--> D/C today - He is Mycoplasma Pneumonia Ag negative - Sputum Cx--> unable to obtain - Strep Pneumonia Ag test--> pending results Malignant HTN - He has not been taking his BP meds - Above is worsened by ETOH Withdrawal Symptoms - Resume Home Meds - D/c IVF once done - Clonodine and PRN IV Hydralazine Q4H for BP > 140/90 mmHg Chronic: Anxiety Depression Plan: Admit to ICU Resume Home Meds MVI, Folic Acid and Thiamine CIWA protocol Ativan for Abortive Seizure and Withdrawal Symptoms PRN meds for Withdrawal Symptoms Aspiration/Seizure Precautions SW/CM d/c planning SA consult Code Status: 1 PCP: Kayley Padgett
--- NOTE | 2017-09-11 16:47 | CONS ---
CONSULTING PHYSICIAN: Venancio Brooks LAC DATE OF CONSULTATION: 09/11/2017 TIME: 3:26 p.m. on 09/11/2017. The patient is a 62-year-old male admitted to [facility] for alcohol withdrawal on 09/10/2017. An alcohol and drug evaluation was requested by his medical treatment team. SOURCE OF INFORMATION: The hospital records, staff consultation, background research, and prescription drug monitoring report. HISTORY OF PRESENT ILLNESS: According to hospital records, this is the patient's second admission in a year to [facility] for alcohol withdrawal. The past admission was on 07/14/2016, both ER staff and attending physician reports that upon admission, the patient was asking for professional intervention with his drinking. Dr. Mares requested an alcohol and drug evaluation for the patient subsequent to his request to provide counseling and appropriate referral to addiction professionals. Upon arrival for the alcohol and drug evaluation, this reverberatory furnace operator asked the patient if he wanted to participate in an alcohol and drug evaluation and if he would like professional substance abuse assistance. The patient refused the evaluation and refused to speak with this reverberatory furnace operator. The patient was asked if he would give consent for this reverberatory furnace operator to speak with his to let her know that there would be no evaluation and no assistance offered for the patient with his drinking. The patient refused to give consent to this reverberatory furnace operator to speak with his and stated "she is coming here tonight and we have already decided to deal with this on her own." The patient's autonomy was respected and no alcohol and drug evaluation was done. This reverberatory furnace operator left a business card for the patient should he change his mind and wants substance abuse help in the future. Dr. Mares was consulted regarding the outcome of this evaluation and it was recommended that should the patient present again to [facility] with the alcohol-related issues, a petition for involuntary commitment should be considered at that time. [facility] /[id number]
[2017-09-11] MEDS ORDERED: cloNIDine 0.1 MG Tab PO PRN (17:49)
[2017-09-11] MEDS ORDERED: chlordiazePOXIDE 25 MG Cap PO PRN ×2 (17:51→17:53)
[2017-09-11] MEDS ORDERED: amLODIPine 5 MG Tab PO SCH ×2 (21:00)
[2017-09-12 08:13] VITALS: BP 110/78
--- NOTE | 2017-09-12 08:14 | PCM.DCSUM1 ---
Discharge Summary - Hospital Course HPI Initial Comments: This is a 62 yo white male with past medical hx/o Chronic ETOH Abuse, Anxiety, Depression, and HTN who presents to ED with flu-like symptoms that started about a week ago. His constellation of symptoms include non-productive cough, subjective fever, wheezing, generalized muscle aches and pain, fatigue and decreased appetite. He denies any recent sick contact. He took OTC cold remedy as well as alkaseltzer but w/o much relief. His initial work up in ED shows a CBC remarkable for WBC of 9.42, MPV of 9, neutrophils of 77.3% and lymphocytes of 16.2%. His chemistry is remarkable for sodium of 133, chloride of 95, anion gap of 16.8. His initial troponin and CRP levels are within normal limits. His UDS is positive for tricyclic. He is negative for Mycoplasma pneumonia Ag test. His chest x-ray shows no acute abnormal findings. While patient is in the emergency department he exhibited signs of withdrawals. He was nauseous and shaky. Upon further investigation by the ED provider, Patient finally admitted he started back drinking alcohol. His most recent drink was this morning with 2 shots of abril. Patient received initial treatment in the emergency department along with CIWA Protocol before he was sent to the unit for further treatment. He is being admitted for alcohol withdrawal Symptoms and acute bronchitis. He is full code. Diagnosis: Stroke: No - Discharge Data Discharge Date: 09/12/17 (Admit date: 09/10/17) Discharge Disposition: Home, Self-Care 01 Condition: Good - Discharge Diagnosis/Problem(s) (1) Anxiety and depression SNOMED Code(s): 76077007 ICD Code: F41.9 - ANXIETY DISORDER, UNSPECIFIED; F32.9 - MAJOR DEPRESSIVE DISORDER, SINGLE EPISODE, UNSPECIFIED Status: Chronic Priority: Medium (2) Chronic alcohol abuse SNOMED Code(s): 733674721 ICD Code: F10.10 - ALCOHOL ABUSE, UNCOMPLICATED Status: Chronic Priority : High (3) HTN (hypertension) SNOMED Code(s): 04480719 ICD Code: I10 - ESSENTIAL (PRIMARY) HYPERTENSION Status: Chronic Priority : High Qualifiers: Hypertension type: essential hypertension Qualified Code(s): I10 - Essential (primary) hypertension (4) Substance abuse SNOMED Code(s): 45164661 ICD Code: F19.10 - OTHER PSYCHOACTIVE SUBSTANCE ABUSE, UNCOMPLICATED Status : Chronic Priority: High (5) Acute bronchitis SNOMED Code(s): 47920804 ICD Code: J20.9 - ACUTE BRONCHITIS, UNSPECIFIED Status: Resolved Priority : High Qualifiers: Bronchitis organism: unspecified organism Qualified Code(s): J20.9 - Acute bronchitis, unspecified - Patient Summary/Data Consults: Consultations 09/10/17 17:43 Consult to Case Management [CONS] Routine Consult to Process Cheese Cooker [CONS] Routine Consult to Spiritual Care [CONS] Routine 09/11/17 09:40 Consult for Substance Abuse [CONS] Routine Labs Pending at D/C: None Recommended Follow-up Testing/Procedures: Follow-up with PCP within 7-10 days of discharge Hospital Course: Assessment: Acute: ETOH Withdrawal Symptoms - CIWA protocol: CIWA score is considerably elevated--> improving - Ativan/Seroquel/Clonidine/Topamax - Hydralazine and IVP BB for HR/BP control - Ativan for Abortive Seizure and Withdrawal Symptoms - SA consult; he is willing to get better ETOH Abuse - Acute on Chronic - He relapsed-> would not give me an answer for the trigger this time - CIWA protocol Resolved: Bronchitis - No Hx/o Pulmonary Disease and He is non active-smoker - CXR shows no acute abnormal findings - No cough, no sputum to culture, afebrile - Decongestant/Expectorant, IS/FV as directed and RT care - IV Azithromycin 500 mg Daily--> D/C - He is Mycoplasma Pneumonia Ag negative - Sputum Cx--> unable to obtain - Strep Pneumonia Ag test--> negative Malignant HTN - He has not been taking his BP meds - Above is worsened by ETOH Withdrawal Symptoms - Resume Home Meds - D/c IVF once done - Clonodine and PRN IV Hydralazine Q4H for BP > 140/90 mmHg Chronic: Anxiety Depression Plan: Admit to ICU Resume Home Meds MVI, Folic Acid and Thiamine CIWA protocol Ativan for Abortive Seizure and Withdrawal Symptoms PRN meds for Withdrawal Symptoms Aspiration/Seizure Precautions SW/CM d/c planning SA consult Code Status: 1 PCP: Kayley Oneill Sincere did quite well. His CIWA's went from 25 in the ED to 0 prior to discharge. He refused to see a licensed addiction counselor. He was instructed to stop drinking or at least cut down prior to discharge as it is likely affecting his BP as well. He was given azithromycin, however this was stopped after admission. His infectious work-up was negative. His BP remained elevated and 10mg Amlodipine at bedtime was started. This achieved good BP control and he will be sent a prescription for this on discharge. He was also given a prescription for a multivitamin, seroquel 50mg at bedtime, effexor XR 75mg daily , and lisinopril. There was some confusion of the lisinopril dose as his pharmacy had 10mg daily on file however the patient reported he was told by his PCP to take 2 of his pills daily. He was instructed to follow what his PCP had advised and continue taking 2 (20mg daily) if that is what was said. He was instructed to take his BP TID and keep them in a journal, bringing the results to all medical appointments. He will be discharged home today. Prior to discharge he did mention a lesion on his back which he wanted us to look at. It appeared to be a sebaceous cyst on the right side mid-back. He was instructed to show this to his PCP on his follow-up appointment. - Patient Instructions Diet: Usual Diet as Tolerated Activity: As Tolerated Driving: May Drive Today Showering/Bathing: May Shower Notify Provider of: Fever, Increased Pain, Nausea and/or Vomiting - Discharge Plan Prescriptions/Med Rec: amLODIPine Besylate [Amlodipine Besylate] 10 mg PO BEDTIME #30 tablet Home Medications: Home Meds Multivitamin [Multivitamins] 1 each PO DAILY 12/20/13 [History] QUEtiapine [SEROquel] 50 mg PO BEDTIME #30 tablet 07/17/16 [Rx] Venlafaxine [Effexor XR] 75 mg PO DAILY #30 cap.er 07/17/16 [Rx] Lisinopril 10 mg PO DAILY #60 09/12/17 [Rx] amLODIPine Besylate [Amlodipine Besylate] 10 mg PO BEDTIME #30 tablet 09/12/17 [ Rx] Patient Handouts: What You Need to Know About Alcohol Abuse and Dependence, Adult, DASH Eating Plan, Substance Use Disorder, Acute Bronchitis, Adult, Easy- to-Read, Hypertension, [id number], Managing Your Hypertension Referrals: Kayley Padgett NP [Primary Care Provider] - - Discharge Summary/Plan Comment DC Time >30 min.: Yes (45 mins ) - General Info Date of Service: 09/12/17 Admission Dx/Problem (Free Text: Admission Diagnosis/Problem Admission Diagnosis/Problem Alcohol withdrawal syndrome Subjective Update: In to see Sincere. He is lying in bed sleeping but awakes easily. He has no complaints. His labs continue to look good. Nursing has no concerns. He will be discharged home today. Functional Status: Reports: Pain Controlled, Tolerating Diet, Ambulating, Urinating. Denies: New Symptoms - Review of Systems General: Reports: No Symptoms. Denies: Fever, Weakness, Fatigue, Malaise HEENT: Reports: No Symptoms. Denies: Eye Pain, Sinus Congestion, Sore Throat Pulmonary: Reports: No Symptoms. Denies: Shortness of Breath, Cough, Wheezing Cardiovascular: Reports: No Symptoms. Denies: Chest Pain, Palpitations, Dyspnea on Exertion, Lightheadedness Gastrointestinal: Reports: No Symptoms. Denies: Abdominal Pain, Constipation, Diarrhea, Nausea, Vomiting Genitourinary: Reports: No Symptoms. Denies: Dysuria, Frequency, Burning, Pain Musculoskeletal: Reports: No Symptoms Skin: Reports: No Symptoms Neurological: Reports: No Symptoms. Denies: Confusion, Dizziness, Seizure, Syncope, Tingling, Trouble Speaking, Difficulty Walking, Weakness, Gait Disturbance Psychiatric: Reports: No Symptoms - Patient Data Vitals - Most Recent: Last Vital Signs Temp 98.3 F 09/12/17 08:00 Pulse 98 09/12/17 08:00 Resp 17 09/12/17 08:00 BP 110/78 09/12/17 08:00 Pulse Ox 95 09/12/17 08:00 Weight - Most Recent: 184 lb 8 oz I&O - Last 24 hours: Intake & Output 09/11/17 09/12/17 09/12/17 22:59 06:59 14:59 Intake Total 1015 200 Balance 1015 200 Lab Results - Last 24 hrs: Laboratory Results - last 24 hr 09/12/17 09/12/17 Range/Units 04:45 04:45 WBC 6.63 (4.23-9.07) K/mm3 RBC 4.74 (4.63-6.08) M/mm3 Hgb 14.4 (13.7-17.5) gm/L Hct 42.6 (40.1-51.0) % MCV 89.9 (79.0-92.2) fl MCH 30.4 (25.7-32.2) pg MCHC 33.8 (32.2-35.5) g/dl RDW Std Deviation 44.5 H (35.1-43.9) fL Plt Count 259 (163-337) K/mm3 MPV 9.4 (9.4-12.3) fl Neut % (Auto) 66.3 (34.0-67.9) % Lymph % (Auto) 23.1 (21.8-53.1) % [place] % (Auto) 8.9 (5.3-12.2) % Eos % (Auto) 1.1 (0.8-7.0) Baso % (Auto) 0.3 (0.1-1.2) % Neut # (Auto) 4.40 (1.78-5.38) K/mm3 Lymph # (Auto) 1.53 (1.32-3.57) K/mm3 [place] # (Auto) 0.59 (0.30-0.82) K/mm3 Eos # (Auto) 0.07 (0.04-0.54) K/mm3 Baso # (Auto) 0.02 (0.01-0.08) K/mm3 Sodium 139 (136-145) mEq/L Potassium 3.9 (3.5-5.1) mEq/L Chloride 106 (98-107) mEq/L Carbon Dioxide 24 (21-32) mEq/L Anion Gap 12.9 (5-15) BUN 15 (7-18) mg/dL Creatinine 1.0 (0.7-1.3) mg/dL Est Cr Clr Drug Dosing 90.19 mL/min Estimated GFR (MDRD) > 60 (>60) mL/min BUN/Creatinine Ratio 15.0 (14-18) Glucose 103 (80-115) mg/dL Calcium 8.5 (8.5-10.1) mg/dL Magnesium 2.1 (1.8-2.4) mg/dl JAY Results - Last 24 hrs: Microbiology 09/10/17 18:06 Streptococcus pneumoniae Antigen (M - Final Urine Med Orders - Current: Current Medications Acetaminophen (Tylenol) 650 mg PO Q4H PRN PRN Reason: Pain (Mild 1-3)/fever Albuterol/Ipratropium (Duoneb 3.0-0.5 Mg/3 Ml) 3 ml NEB Q4H PRN PRN Reason: Shortness Of Breath/wheezing Amlodipine Besylate (Norvasc) 10 mg PO BEDTIME [facility] Last Admin: 09/11/17 21:47 Dose: 10 mg Bisacodyl (Dulcolax) 5 mg PO DAILY PRN PRN Reason: Constipation Chlordiazepoxide HCl (Librium) 25 mg PO Q6H PRN PRN Reason: Withdrawal Symptoms Clonidine HCl (Catapres-Tts 3) 0.3 mg TRDERM Q7D [facility] Last Admin: 09/10/17 22:15 Dose: 0.3 mg Clonidine HCl (Catapres) 0.1 mg PO Q4H PRN PRN Reason: Agitation Docusate Sodium (Colace) 100 mg PO BID PRN PRN Reason: Constipation Famotidine (Pepcid) 20 mg PO Q12H [facility] Last Admin: 09/11/17 21:47 Dose: 20 mg Folic Acid (Folic Acid) 1 mg PO DAILY [facility] Stop: 09/13/17 09:01 Last Admin: 09/11/17 08:05 Dose: 1 mg Guaifenesin/Phenylephrine HCl (Robitussin Dm) 10 ml PO Q4H PRN PRN Reason: Cough Haloperidol Lactate (Haldol) 2 mg IM Q4H PRN PRN Reason: Agitation Hydralazine HCl (Apresoline) 20 mg IVPUSH Q4H PRN PRN Reason: Hypertension Last Admin: 09/11/17 16:09 Dose: 20 mg Hydromorphone HCl (Dilaudid) 0.5 mg IVPUSH Q2H PRN PRN Reason: Pain (severe 7-10) Promethazine HCl 12.5 mg/ (Sodium Chloride) 50.5 mls @ 100 mls/hr IV Q6H PRN PRN Reason: Nausea/Vomiting Lisinopril (Prinivil) 20 mg PO DAILY [facility] Lorazepam (Ativan) 2 mg IVPUSH Q4H PRN PRN Reason: Seizures Lorazepam (Ativan) 1 - 3 mg IVPUSH Q4H PRN; Protocol PRN Reason: Withdrawal Symptoms Last Admin: 09/11/17 21:49 Dose: 2 mg Magnesium Sulfate (Pharmacy To Dose - Magnesium Replacement) 0 dose .XX ASDIRECTED PRN PRN Reason: RX TO WATCH MAG LEVELS Metoprolol Tartrate (Lopressor) 5 mg IVPUSH Q4H PRN PRN Reason: Tachycardia Last Admin: 09/11/17 09:29 Dose: 5 mg Miscellaneous Information (Remove Patch) 1 ea TRDERM DAILY PRN PRN Reason: IF USED Miscellaneous Information (Remove Patch) 1 ea TRDERM Q7D [facility] Last Admin: 09/10/17 22:11 Dose: Not Given Multivitamins (Thera) 1 each PO DAILY [facility] Last Admin: 09/11/17 08:01 Dose: 1 each Multivitamins (Thera) 1 each PO DAILY [facility] Stop: 09/14/17 09:01 Last Admin: 09/11/17 08:09 Dose: 1 each Nicotine (Habitrol) 21 mg TRDERM DAILY PRN PRN Reason: Nicotine Dependence Ondansetron HCl (Zofran) 4 mg IV Q6H PRN PRN Reason: Nausea/Vomiting Oxycodone HCl (Oxycodone) 5 mg PO Q4H PRN PRN Reason: Pain (moderate 4-6) Potassium Chloride (Pharmacy To Dose - Potassium Replacement) 0 dose .XX ASDIRECTED PRN PRN Reason: RX TO WATCH Quetiapine Fumarate (Seroquel) 50 mg PO BEDTIME [facility] Last Admin: 09/11/17 21:47 Dose: 50 mg Quetiapine Fumarate (Seroquel) 25 mg PO DAILY [facility] Stop: 09/12/17 09:01 Last Admin: 09/11/17 08:05 Dose: 25 mg Senna/Docusate Sodium (Senna Plus) 1 tab PO BID PRN PRN Reason: Constipation Thiamine HCl (Vitamin B-1) 100 mg PO DAILY [facility] Last Admin: 09/11/17 08:08 Dose: 100 mg Topiramate (Topamax) 25 mg PO BID [facility] Last Admin: 09/11/17 21:47 Dose: 25 mg Venlafaxine HCl (Effexor Xr) 75 mg PO DAILY [facility] Last Admin: 09/11/17 08:05 Dose: 75 mg Discontinued Medications Amlodipine Besylate (Norvasc) 5 mg PO BID [facility] Azithromycin (Zithromax) 500 mg PO ONETIME ONE Stop: 09/10/17 12:37 Last Admin: 09/10/17 12:47 Dose: 500 mg Chlordiazepoxide HCl (Librium) 50 mg PO ONETIME ONE Stop: 09/10/17 15:11 Last Admin: 09/10/17 15:43 Dose: 50 mg Chlordiazepoxide HCl (Librium) 25 mg PO TID PRN PRN Reason: Withdrawal Symptoms Clonidine HCl (Catapres) 0.1 mg PO Q4H PRN PRN Reason: Agitation Famotidine (Pepcid) 20 mg IVPUSH ONETIME ONE Stop: 09/10/17 14:31 Last Admin: 09/10/17 14:41 Dose: 20 mg Sodium Chloride (Normal Saline) 1,000 mls @ 250 mls/hr IV ONETIME ONE Stop: 09/10/17 18:29 Last Admin: 09/10/17 14:39 Dose: 250 mls/hr Thiamine HCl 200 mg/ Sodium (Chloride) 52 mls @ 100 mls/hr IV ONETIME ONE Stop: 09/10/17 18:13 Last Admin: 09/10/17 18:55 Dose: 100 mls/hr Azithromycin 500 mg/ Sodium (Chloride) 250 mls @ 125 mls/hr IV Q24H [facility] Last Admin: 09/11/17 12:15 Dose: 125 mls/hr Magnesium Sulfate 2 gm/ Premix 50 mls @ 25 mls/hr IV ONETIME ONE Stop: 09/11/17 09:59 Last Admin: 09/11/17 07:50 Dose: 25 mls/hr Levalbuterol HCl (Xopenex) 1.25 mg NEB ONETIME ONE Stop: 09/10/17 11:42 Last Admin: 09/10/17 11:48 Dose: 1.25 mg Lisinopril (Prinivil) 10 mg PO ONETIME ONE Stop: 09/10/17 11:42 Last Admin: 09/10/17 12:08 Dose: 10 mg Lisinopril (Prinivil) 10 mg PO DAILY [facility] Last Admin: 09/11/17 08:03 Dose: 10 mg Lorazepam (Ativan) 0.5 mg IVPUSH ONETIME ONE Stop: 09/10/17 12:35 Last Admin: 09/10/17 12:45 Dose: 0.5 mg Lorazepam (Ativan) 1 mg IVPUSH ONETIME ONE Stop: 09/10/17 14:16 Last Admin: 09/10/17 14:47 Dose: 1 mg Lorazepam (Ativan) Confirm Administered Dose 2 mg .ROUTE .STK-MED ONE Stop: 09/10/17 14:46 Last Admin: 09/10/17 15:25 Dose: Not Given Metoprolol Succinate (Toprol Xl) 50 mg PO ONETIME ONE Stop: 09/10/17 17:40 Metoprolol Tartrate (Lopressor) 5 mg IVPUSH Q4H PRN PRN Reason: Tachycardia Last Admin: 09/10/17 18:04 Dose: 5 mg Ondansetron HCl (Zofran) 4 mg IVPUSH ONETIME ONE Stop: 09/10/17 12:56 Last Admin: 09/10/17 13:02 Dose: 4 mg Ondansetron HCl (Zofran) 4 mg IVPUSH ONETIME ONE Stop: 09/10/17 14:31 Last Admin: 09/10/17 14:43 Dose: 4 mg Prednisone (Prednisone) 40 mg PO ONETIME ONE Stop: 09/10/17 12:36 Last Admin: 09/10/17 12:47 Dose: 40 mg Quetiapine Fumarate (Seroquel) 50 mg PO ONETIME ONE Stop: 09/10/17 14:16 Last Admin: 09/10/17 14:40 Dose: 50 mg - Exam Quality Assessment: Reports: DVT Prophylaxis General: Reports: Alert, Oriented, Cooperative, No Acute Distress HEENT: Reports: Pupils Equal, Pupils Reactive, EOMI, Mucous Membr. Moist/[place] Neck: Reports: Supple, Trachea Midline, No JVD Lungs: Reports: Clear to Auscultation, Normal Respiratory Effort Cardiovascular: Reports: Regular Rate, Regular Rhythm GI/Abdominal Exam: Normal Bowel Sounds, Soft, Non-Tender, No Distention (Male) Exam: Deferred Rectal (Males) Exam: Deferred Back Exam: Reports: Normal Inspection, Full Range of Motion, Other (small approx 3/4 cm lesion on right mid-back. Patient is concerned about this. Discussed how it is likely a sebaceous cyst and how he should discuss it with his PCP on his follow-up appt. ) Extremities: Normal Inspection, Normal Range of Motion, Non-Tender, No Pedal Edema, Normal Capillary Refill Skin: Reports: Warm, Intact Neurological: Reports: No New Focal Deficit Psy/Mental Status: Reports: Alert, Normal Affect, Normal Mood
[2017-09-12] MEDS: Thiamine 100 MG Tab PO SCH (08:33)
[2017-09-12] MEDS: QUEtiapine 25 MG Tab PO SCH (08:33)
[2017-09-12] MEDS: Topiramate 25 MG Tab PO SCH (08:33)
[2017-09-12] MEDS: Famotidine 20 MG Tab PO SCH (08:33)
[2017-09-12] MEDS: Multivitamins,Therapeutic Tab PO SCH ×2 (08:33→08:52)
[2017-09-12] MEDS: Folic Acid 1 MG Tab PO SCH (08:34)
[2017-09-12] MEDS: Venlafaxine 75 MG Cap.ER PO SCH (08:43)
[2017-09-12] MEDS ORDERED: Lisinopril 10 MG Tab PO SCH (09:00)
== END 2017-09-12 12:38 | disposition home or self-care (01) | DRG 202 ==
LOC: JD.ED 10:38 → UNDOADMIN 14:24 → JD.ICU 14:24
PROVIDERS: ADMIT Internal Medicine; ATTEND Internal Medicine
DX: J20.9 Acute bronchitis, unspecified (principal); F10.239 Alcohol dependence with withdrawal, unspecified; F41.9 Anxiety disorder, unspecified; F32.9 Major depressive disorder, single episode, unspecified; I10 Essential (primary) hypertension; Z79.899 Other long term (current) drug therapy; Z87.891 Personal history of nicotine dependence
CPT/HCPCS: 36415; 71046; 71046-26; 80048; 80053; 80306; 83735; 84484; 85025; 86140; 86738; 87899; 94640; 96374; 96375; 99285; 99285-25; A9270-GY; J0360; J0456; J2060; J2405; J3411; J3475; J3490; J7030; J7040; J7050; J7612